=== PATIENT | female | born 1955 | race African-American/Black ===

== ENCOUNTER 2016-06-23 12:30 | Observation (INO) | payer OTHER ==
[~2016-06-23] VITALS: Ht 162.6 cm; Wt 82.4 kg
[~2016-06-23 12:30] MED LIST: ADLT ASA LOW81 MG PO; AMLOD/BENAZP1 CA5 PO; AMLODIPINE BESY10 MG PO; AMLODIPINE5 MG PO; ASPIRIN CHEWABL81 MG OR; ATENOLOL100 MG OR; CARVEDILOL25 MG PO; CILOSTAZOL50 MG PO; CIPRO XR500 MG PO; CIPROFLOXACN500 MG PO; CLONIDINE0.1 MG PO; COLACE100 MG PO; COZAAR100 MG PO; COZAAR50 MG OR; CYCLOBENZAPR10 MG PO; DIFLUCAN150 MG PO; FLAGYL ER750 MG PO; FLEXERIL OR; FLUCONAZOLE150 MG PO; FUROSEMIDE20 MG PO; FUROSEMIDE40 MG PO; GABAPENTIN300 MG PO; GLIPIZIDE5 MG PO; HYDROCODONE/ACE1 TAB PO; HYDROXYCHLOR200 M2 PO; IMDUR60 MG PO; ISOSORB DIN30 MG PO; K-DUR/KLOR-CON10 ME1 PO; K-DUR/KLOR-CON10 MEQ PO; KEFLEX500 MG PO; LIPITOR40 MG PO; LIPITOR80 MG PO; LISINOPRIL20 M1 PO; LISINOPRIL20 MG PO; LISINOPRIL40 MG PO; LORTAB 5/3255 MG PO; LORTAB5 PO; MECLIZINE25 MG PO; MELOXICAM15 MG PO; MELOXICAM7.5 MG PO; METFORMIN500 M1 PO; METFORMIN500 MG PO; METRONIDAZOL500 MG PO; NIFEDIPINE60 M1 PO; NITROGLYCER0.4 M1 SL; NITROSTAT0.4 MG SL; NORCO1 TA1 PO; NORCO1 TA2 PO; NORVASC10 M1 PO; PANTOPRAZOLE SO40 MG PO; PLAVIX75 MG PO; POT CHLORIDE10 ME1 PO; PROAIR HFA IN; PROTONIX40 M2 PO; PROTONIX40 MG PO; PROVENTIL HFA INH; PROVENTIL0.083 % IN; SIMVASTATIN40 MG PO; SIMVASTATIN80 MG PO; TENORMIN OR; TENORMIN PO; TRAMADOL HCL50 MG PO; TRANSDERM-N0.2 MG/HR TD; ZESTRIL40 MG PO; ZITHROMAX250 MG PO; [UNRECOGNIZED DRUG - OTHER]
--- NOTE | 2016-06-23 12:48 | NUR ---
PT TRIAGED, TO ROOM 14 VIA WC
[2016-06-23 13:12] LABS: HEMATOCRIT 36.7 % (37.0-47.0); HEMOGLOBIN 12.3 g/dl (12.0-16.0); IMMATURE GRANULOCYTES 0.3 % (0.0-1.0); MEAN CELL VOLUME 85.3 fL CALC (80.0-100.0); MEAN CORPUSCULAR HGB 28.6 pG CALC (26.0-32.0); MEAN CORPUSCULAR HGB CONC 33.5 g/L CALC (32.0-36.0); NEUT# 3.57 thou/uL (2.00-7.15); RED BLOOD COUNT 4.3 mill/uL (4.20-5.60); RED CELL DISTRI WIDTH 14.1 % (11.5-15.5)
[2016-06-23 13:19] LABS: ALBUMIN 4.4 g/dL (3.2-5.0); ALKALINE PHOSPHATASE 93 u/l (38-126); ANION GAP 16 (6-22 (CALC)); BILIRUBIN, TOTAL 0.7 mg/dL (0.0-1.4); BUN 14 mg/dL (7-17); BUN/CREATININE RATIO 16 (12-20 (CALC)); CALCIUM 9.6 mg/dL (8.4-10.2); CARBON DIOXIDE 24 mmol/l (22-30); CHLORIDE 109 mmol/l (95-108); CREATININE 0.9 mg/dL (0.5-1.0); GFR > 60 ML/MIN (>=60 (CALC)); GFR FOR AFR.AMER. > 60 ML/MIN (>=60 (CALC)); GLUCOSE 116 mg/dL (65-105); SGOT/AST 41 u/l (14-36); SGPT/ALT 45 u/l (9-52); SODIUM 145 mmol/l (137-146); TOTAL PROTEIN 8.5 g/dL (6.3-8.2)
[2016-06-23 13:30] LABS: MYOGLOBIN 37 ng/mL (0 - 62)
--- NOTE | 2016-06-23 13:40 | NUR ---
PATIENT RESTING DENIES ANY CHEST PAIN AT THIS TIME PATIENT AMBULATED TO THE RESTROOM WITHOUT ASSISTANCE AWAITING LAB AND RADIOLOGY RE SULTS
--- NOTE | 2016-06-23 14:40 | NUR ---
PATIENT RESTING AWAITING LAB AND RADIOLOGY RESULTS PATIENT DENIES ANY CHEST PAIN AT THIS TIME
--- NOTE | 2016-06-23 15:40 | NUR ---
PATIENT RESTING REPORT CALLED TO MED [facility] AND PATIENT IS AWAITING TRANSPORT. PATIENT DENIES ANY CHEST PAIN AT THIS TIME
--- NOTE | 2016-06-23 16:02 | NUR ---
PATIENT RESTING AWAITING TRANSPORT TO THE FLOOR. PATIENT DENIES ANY CHEST PAIN AT THIS TIME
[2016-06-23 16:27] VITALS: BP 151/85
--- NOTE | 2016-06-23 16:40 | NUR ---
PATIENT ARRIVED TO FLOOR AT THIS TIME VIA WHEEL CHAIR, ACCOMPANIED BY MARISOL RN, PATIENT AMBULATED FROM CHAIR TO BED WITH STEADY GAIT, PATIENT ORIENTED TO ROOM AND CALL LIGHT SYSTEM, ASSESSMENT COMPLETED, #[address] SITE APPEARS HEALTHY AT THIS TIME, TELE IN PLACE, PT COMPLAINS OF PAIN RATING 10/10 IN LOWER EXTREMETIES, BLOOD SUGAR CHECKED AT THIS TIME 123, PT DENIES ANY OTHER NEEDS AT THIS TIME, PT WAS REQUESTED TO CALL NURSE IF NEEDED.
[2016-06-23 19:46] VITALS: BP 143/88
--- NOTE | 2016-06-23 19:49 | NUR ---
PATIENT RESTING IN BED AT THIS TIME WITH VISITOR AT BEDSIDE. PATIENT IS AWAKE ALERT AND ORIENTEDX3. PATIENT IS EXTREMELY ANXIOUS. PATIENT DENIES ANY CHEST PAIN AT THIS TIME. PATIENT WITH TELE MONITOR IN PLACE. PATIENT WITH HEP LOCK TO LEFT AC-SITE REDRESSED AND FLUSHED WITH GOOD BLOOD RETURN. PATIENT UP TO THE BR TO VOID. LUNGS CLEAR. ABD SOFT WITH ACTIVE BS+. SAFETY PRECAUTIONS REINFORCED. CALL LIGHT IN REACH. WILL CONT TO MONITOR.
--- NOTE | 2016-06-23 23:45 | NUR ---
PATIENT TROP DRAWN. PATIENT UP TO THE BR TO VOID CLEAR YELLOW URINE. BACK TO BED. PATIENT MEDICATED FOR SLEEP AND PAIN. CALL LIGHT IN REACH. WILL CONT TO MONITOR.
[2016-06-23 23:52] VITALS: BP 137/83
--- NOTE | 2016-06-24 01:31 | NUR ---
APPEARS SLEEPING AT THIS TIME IN NO ACUTE DISTRESS-EYES CLOSED AND POSITIONED ON HER SIDE. CALL LIGHT IN REACH. WILL CONT TO MONITOR.
[2016-06-24 04:47] VITALS: BP 149/82
--- NOTE | 2016-06-24 04:56 | NUR ---
PATIENT RESTING IN BED-DENIES PAIN AT THIS TIME BUT STATES THAT SHE JUST DOESN'T FEEL GOOD. VS TAKEN AND RECORDED. CALL LIGHT IN REACH. WILL CONT TO MONITOR.
[2016-06-24 06:24] LABS: ANION GAP 14 (6-22 (CALC)); BUN 16 mg/dL (7-17); BUN/CREATININE RATIO 21 (12-20 (CALC)); CALCIUM 9.4 mg/dL (8.4-10.2); CARBON DIOXIDE 25 mmol/l (22-30); CHLORIDE 107 mmol/l (95-108); CREATININE 0.8 mg/dL (0.5-1.0); GFR > 60 ML/MIN (>=60 (CALC)); GFR FOR AFR.AMER. > 60 ML/MIN (>=60 (CALC)); GLUCOSE 86 mg/dL (65-105); MAGNESIUM 1.9 mg/dL (1.6-2.3); POTASSIUM 3.8 mmol/l (3.5-5.1); SODIUM 142 mmol/l (137-146)
--- NOTE | 2016-06-24 07:14 | NUR ---
REPORT RECEIVED FROM ANA ROSA LIANG. PT STATES "I FEEL BETTER". PLAN OF CARE DISCUSSED. REPORTING OF CONCERNS ENCOURAGED. CALL LIGHT REVIEWED AND IN REACH.
[2016-06-24 07:30] VITALS: BP 163/80
--- NOTE | 2016-06-24 09:00 | NUR ---
REPORT RECEIVED FROM Lyudmila MORA RN; PT IN SUPINE POSITION; DENIES PAIN; TELE MONITOR IN PLACE; CALL MERCHANT WITHIN REACH; WILL CONTINUE TO MONITOR.
[2016-06-24 11:06] VITALS: BP 172/97
--- NOTE | 2016-06-24 12:30 | NUR ---
DR. GARCIA IN TO SEE PT; PLAN OF CARE DISCUSSED
[2016-06-24] MEDS ORDERED: LIPITOR20 M1 PO (13:30)
[2016-06-24 14:00] VITALS: BP 134/72
== END 2016-06-24 15:00 | disposition home or self-care (01) | DRG 313 ==
LOC: ENPENDDIS → ED 12:30 → ED-I 13:33 → ED 14:32 → MS2 14:33
PROVIDERS: Emergency Medicine; ADMIT Internal Medicine; ATTEND Internal Medicine
DX: R07.2 Precordial pain (principal); I25.2 Old myocardial infarction; I10 Essential (primary) hypertension; I25.10 Atherosclerotic heart disease of native coronary artery without angina pectoris; E11.9 Type 2 diabetes mellitus without complications; J44.9 Chronic obstructive pulmonary disease, unspecified; E78.5 Hyperlipidemia, unspecified; Z79.02 Long term (current) use of antithrombotics/antiplatelets; Z79.84 Long term (current) use of oral hypoglycemic drugs; Z79.82 Long term (current) use of aspirin; Z95.5 Presence of coronary angioplasty implant and graft; Z87.891 Personal history of nicotine dependence
CPT/HCPCS: G0378

== ENCOUNTER 2016-08-24 20:30 | Observation (INO) | payer OTHER ==
[~2016-08-24] VITALS: Ht 162.6 cm; Wt 83.0 kg
[~2016-08-24 20:30] MED LIST changes: +LIPITOR20 M1 PO
[2016-08-24] MEDS ORDERED: BACLOFEN10 MG PO (20:57)
[2016-08-24] MEDS ORDERED: AMLODIPINE BESYL5 MG PO (21:09)
[2016-08-24] MEDS ORDERED: ISOSORB MONO30 MG PO (21:10)
[2016-08-24] MEDS ORDERED: LOSARTAN POT50 MG PO (21:11)
[2016-08-24] MEDS ORDERED: LASIX 40 MG TAB40 MG PO (21:12)
[2016-08-24] MEDS ORDERED: RANITIDINE150 M1 PO (21:14)
[2016-08-24 21:29] LABS: URINE BILIRUBIN - DIPSTICK NEGATIVE (NEGATIVE); URINE BLOOD DIPSTICK NEGATIVE (NEGATIVE); URINE COLOR YELLOW; URINE GLUCOSE - DIPSTICK NEGATIVE (NEGATIVE); URINE KETONE NEGATIVE (NEGATIVE); URINE LEUK ESTERASE NEGATIVE (NEGATIVE); URINE NITRITE - DIPSTICK NEGATIVE (Negative); URINE PROTEIN - DIPSTICK 30 mg/dL (NEG-TRACE); URINE SPECIFIC GRAVITY 1.015; URINE UROBILINOGEN - DIPSTICK 0.2 E.U./dL (0.2)
[2016-08-24 21:31] LABS: HEMATOCRIT 37.1 % (37.0-47.0); HEMOGLOBIN 12.4 g/dl (12.0-16.0); IMMATURE GRANULOCYTES 1.2 % (0.0-1.0); MEAN CELL VOLUME 86.5 fL CALC (80.0-100.0); MEAN CORPUSCULAR HGB 28.9 pG CALC (26.0-32.0); MEAN CORPUSCULAR HGB CONC 33.4 g/L CALC (32.0-36.0); NEUT# 4.77 thou/uL (2.00-7.15); RED BLOOD COUNT 4.29 mill/uL (4.20-5.60); RED CELL DISTRI WIDTH 14.3 % (11.5-15.5)
[2016-08-24 21:32] LABS: URINE CLARITY SLIGHT CLOUDY
[2016-08-24 21:42] LABS: URINE BACTERIA FEW hpf; URINE RBC 0-2 RBC/hpf (0-5); URINE SQUAMOUS EPITHELIAL CELL MODERATE EPI/hpf (0-FEW); URINE WBC 0-2 WBC/hpf (0-5)
[2016-08-24 21:46] LABS: ACT PARTIAL THROMBO TIME 22.3 SECONDS (20.0-32.5); PROTHROMBIN TIME 10.5 SECONDS (9.0-12.5)
[2016-08-24 22:14] LABS: ALBUMIN 4.5 g/dL (3.2-5.0); ALKALINE PHOSPHATASE 96 u/l (38-126); ANION GAP 15 (6-22 (CALC)); BILIRUBIN, TOTAL 0.4 mg/dL (0.0-1.4); BUN 18 mg/dL (7-17); BUN/CREATININE RATIO 15 (12-20 (CALC)); CALCIUM 9.6 mg/dL (8.4-10.2); CARBON DIOXIDE 26 mmol/l (22-30); CHLORIDE 106 mmol/l (95-108); CREATININE 1.2 mg/dL (0.5-1.0); GFR 46 ML/MIN (>=60 (CALC)); GFR FOR AFR.AMER. 56 ML/MIN (>=60 (CALC)); GLUCOSE 110 mg/dL (65-105); POTASSIUM 3.4 mmol/l (3.5-5.1); SGOT/AST 25 u/l (14-36); SGPT/ALT 50 u/l (9-52); SODIUM 144 mmol/l (137-146); TOTAL PROTEIN 7.7 g/dL (6.3-8.2)
[2016-08-24 22:27] LABS: MYOGLOBIN 37 ng/mL (0 - 62)
[2016-08-25 01:21] VITALS: BP 153/87
[2016-08-25 04:28] VITALS: BP 122/76
[2016-08-25 06:45] LABS: ANION GAP 15 (6-22 (CALC)); BUN 17 mg/dL (7-17); BUN/CREATININE RATIO 22 (12-20 (CALC)); CALCIUM 9.5 mg/dL (8.4-10.2); CALCULATED LDLCHOLESTEROL 112 mg/dL (62-129 (CALC)); CARBON DIOXIDE 24 mmol/l (22-30); CHLORIDE 107 mmol/l (95-108); CHOLESTEROL HDL RATIO 5.3 (<4.4 (CALC)); CREATININE 0.8 mg/dL (0.5-1.0); GFR > 60 ML/MIN (>=60 (CALC)); GFR FOR AFR.AMER. > 60 ML/MIN (>=60 (CALC)); GLUCOSE 135 mg/dL (65-105); HDL CHOLESTEROL 33 mg/dL (>=40); POTASSIUM 3.5 mmol/l (3.5-5.1); SODIUM 142 mmol/l (137-146); TOTAL CHOLESTEROL 175 mg/dl (0-199); TOTAL TRIGLYCERIDES 150 mg/dl (30-149); VLDL CHOLESTROL 30 mg/dl (2-49 (CALC))
[2016-08-25 08:02] VITALS: BP 152/86
[2016-08-25 11:35] VITALS: BP 130/74
== END 2016-08-25 14:04 | disposition home or self-care (01) | DRG 313 ==
LOC: ENPENDDIS → ED 20:30 → ED-I 08-25 00:26 → ED 08-25 00:33 → MS2 08-25 00:34
PROVIDERS: Emergency Medicine; ADMIT Internal Medicine; ATTEND Internal Medicine
DX: R07.89 Other chest pain (principal); I25.2 Old myocardial infarction; N17.9 Acute kidney failure, unspecified; I25.10 Atherosclerotic heart disease of native coronary artery without angina pectoris; E11.9 Type 2 diabetes mellitus without complications; E86.0 Dehydration; I10 Essential (primary) hypertension; E78.5 Hyperlipidemia, unspecified; J44.9 Chronic obstructive pulmonary disease, unspecified; Z79.84 Long term (current) use of oral hypoglycemic drugs; Z95.5 Presence of coronary angioplasty implant and graft; Z87.891 Personal history of nicotine dependence
CPT/HCPCS: G0378

== ENCOUNTER 2016-12-03 05:20 | Observation (INO) | payer OTHER ==
[~2016-12-03] VITALS: Ht 162.6 cm; Wt 80.8 kg
[~2016-12-03 05:20] MED LIST changes: +AMLODIPINE BESYL5 MG PO; +BACLOFEN10 MG PO; +ISOSORB MONO30 MG PO; +LASIX 40 MG TAB40 MG PO; +LOSARTAN POT50 MG PO; +RANITIDINE150 M1 PO
--- NOTE | 2016-12-03 05:33 | NUR ---
DR GENAO AT BEDSIDE.
[2016-12-03] MEDS ORDERED: PROVENTIL HFA IN (05:40)
[2016-12-03] MEDS ORDERED: COLACE100 MG PO (05:41)
--- NOTE | 2016-12-03 05:46 | NUR ---
LAST NORMAL FOR PT WAS [id number]/02/[id number]
--- NOTE | 2016-12-03 06:03 | NUR ---
PORT XRAY AT BEDSIDE.
--- NOTE | 2016-12-03 06:06 | NUR ---
SPOUSE AT BEDSIDE.
[2016-12-03 06:10] LABS: HEMATOCRIT 36.8 % (37.0-47.0); HEMOGLOBIN 12.2 g/dl (12.0-16.0); IMMATURE GRANULOCYTES 0.6 % (0.0-1.0); MEAN CELL VOLUME 86.4 fL CALC (80.0-100.0); MEAN CORPUSCULAR HGB 28.6 pG CALC (26.0-32.0); MEAN CORPUSCULAR HGB CONC 33.2 g/L CALC (32.0-36.0); NEUT# 2.45 thou/uL (2.00-7.15); RED BLOOD COUNT 4.26 mill/uL (4.20-5.60); RED CELL DISTRI WIDTH 13.8 % (11.5-15.5)
[2016-12-03 06:17] LABS: ALBUMIN 4.3 g/dL (3.2-5.0); ALKALINE PHOSPHATASE 100 u/l (38-126); ANION GAP 17 (6-22 (CALC)); BILIRUBIN, TOTAL 0.5 mg/dL (0.0-1.4); BUN 14 mg/dL (7-17); BUN/CREATININE RATIO 19 (12-20 (CALC)); CALCIUM 9.7 mg/dL (8.4-10.2); CARBON DIOXIDE 23 mmol/l (22-30); CHLORIDE 109 mmol/l (95-108); CREATININE 0.7 mg/dL (0.5-1.0); GFR > 60 ML/MIN (>=60 (CALC)); GFR FOR AFR.AMER. > 60 ML/MIN (>=60 (CALC)); GLUCOSE 212 mg/dL (65-105); POTASSIUM 3.8 mmol/l (3.5-5.1); SGOT/AST 19 u/l (14-36); SGPT/ALT 33 u/l (9-52); SODIUM 145 mmol/l (137-146); TOTAL PROTEIN 7.2 g/dL (6.3-8.2)
[2016-12-03 06:30] LABS: MYOGLOBIN 21 ng/mL (0 - 62)
[2016-12-03 06:31] LABS: ACT PARTIAL THROMBO TIME 24.1 SECONDS (20.0-32.5); PROTHROMBIN TIME 10.6 SECONDS (9.0-12.5)
--- NOTE | 2016-12-03 06:41 | NUR ---
PT UP TO BEDSIDE COMMODE. C/O FEELINIG "BAD" WHENEVER SHE MOVES.
--- NOTE | 2016-12-03 06:42 | NUR ---
INFORMED PT OF NEED TO TRANSPORT TO [facility] FOR CT BRAIN.
[2016-12-03 06:51] LABS: URINE BILIRUBIN - DIPSTICK NEGATIVE (NEGATIVE); URINE BLOOD DIPSTICK NEGATIVE (NEGATIVE); URINE CLARITY CLEAR; URINE COLOR YELLOW; URINE GLUCOSE - DIPSTICK NEGATIVE (NEGATIVE); URINE KETONE NEGATIVE (NEGATIVE); URINE LEUK ESTERASE NEGATIVE (NEGATIVE); URINE NITRITE - DIPSTICK NEGATIVE (Negative); URINE PROTEIN - DIPSTICK 100 mg/dL (NEG-TRACE); URINE UROBILINOGEN - DIPSTICK 0.2 E.U./dL (0.2)
[2016-12-03 06:56] LABS: BARBITURATES NEGATIVE (NEGATIVE); COCAINE NEGATIVE (NEGATIVE); METHADONE NEGATIVE (NEGATIVE); OXCYCODONE NEGATIVE (NEGATIVE); TETRAHYDROCANNABIONOL NEGATIVE (NEGATIVE); TRICYLIC ANTIDEPRESSANTS NEGATIVE (NEGATIVE)
--- NOTE | 2016-12-03 06:56 | NUR ---
REPORT TO EDYTA POLLACK.
--- NOTE | 2016-12-03 07:05 | NUR ---
INTRODUCED SELF TO PT AND . PATIENT DENIES ANY NUASEA BUT REPOPRTS CONTINUED DIZZINESS. PATIENT AWARE OF ETA OF [facility] AND NEED FOR CT BRAIN. PATIENT DENIES ANY NEEDS AT THIS TIME. CALL MAYUR HERMOSILLO.
[2016-12-03 07:08] LABS: URINE RBC 0-2 RBC/hpf (0-5); URINE SQUAMOUS EPITHELIAL CELL RARE EPI/hpf (0-FEW); URINE WBC 0-2 WBC/hpf (0-5)
--- NOTE | 2016-12-03 07:12 | NUR ---
[facility] AT BEDSIDE, REPORT GIVEN.
--- NOTE | 2016-12-03 09:40 | NUR ---
REPORT GIVEN TO ANA ROSA LINAD
--- NOTE | 2016-12-03 10:11 | NUR ---
SBAR PRINTED TO FLOOR
--- NOTE | 2016-12-03 11:18 | NUR ---
REPORT CALLED TO LATHA, TO FLOOR SOON.
--- NOTE | 2016-12-03 11:20 | NUR ---
Admission Note Report Given to: SBAR PRINTED TO FLOOR Transported by: Wheelchair X Stretcher Transported with: X Nurse Transporter X Patent IV O2 X Data Analytics Developer
--- NOTE | 2016-12-03 11:25 | NUR ---
FROM ER VIA STRETCHER ACCOMPANIED BY ALEXEI OSEGUERA. TRANSFERRED TO BED WITH UNSTEADY GAIT. RESPS EVEN AND UNLABORED ON ROOM AIR, TELE MONITOR IN PLACE. REPORTS DIZZINESS WITH MOVEMENT. ORIENTED TO ROOM AND CALL SYSTEM. SAFETY PRECAUTIONS REINFORCED. BED IN LOWEST POSITION WITH WHEELS LOCKED. CALL LIGHT WITHIN REACH. ENCOURAGED PT TO CALL FOR ANY NEEDS.
[2016-12-03 11:33] VITALS: BP 170/89
[2016-12-03 11:41] LABS: CHOLESTEROL HDL RATIO 5.8 (<4.4 (CALC)); MAGNESIUM 1.8 mg/dL (1.6-2.3)
--- NOTE | 2016-12-03 13:30 | NUR ---
PHYSICAL THERAPY IN WITH PT.
[2016-12-03] MEDS ORDERED: ISOSORB MONO60 M1 PO (13:38)
[2016-12-03] MEDS ORDERED: LIPITOR40 M1 PO (13:39)
[2016-12-03] MEDS ORDERED: LORCET HD 10-321 TAB PO (13:40)
--- NOTE | 2016-12-03 14:45 | NUR ---
MEDICATED WITH MECLIZINE PO FOR C/O DIZZINESS. PT ENCOURAGED TO STAY ON BACK AT 45 DEGREE ANGLE, KEEP TOWEL AROUND NECK, HAVE FAMILY SIT ON RIGHT SIDE OF BED, DO NOT LIE FLAT, TRY TO MOVE BODY INSTEAD OF HEAD, UNTIL AT LEAST 2200.
[2016-12-03 16:00] VITALS: BP 135/82
--- NOTE | 2016-12-03 18:50 | NUR ---
RECEIVED CHANGE OF SHIFT REPORT FROM ANA ROSA AZUL. PATIENT LYING IN BED AND APPEARS TO BE ASLEEP. RESPIRATION EVEN AND UNLABORED. NO APPARENT ACUTE DISTRESS NOTED. WILL CONTINUE TO MONITOR.
[2016-12-03 20:00] VITALS: BP 143/84
[2016-12-04] VITALS (7 sets, daily range): BP systolic 115–158; BP diastolic 60–88
--- NOTE | 2016-12-04 04:00 | NUR ---
NO APPARENT ACUTE CHANGES NOTED IN PATIENT'S CONDITION.
[2016-12-04 05:41] LABS: ANION GAP 15 (6-22 (CALC)); BUN 12 mg/dL (7-17); BUN/CREATININE RATIO 16 (12-20 (CALC)); CALCIUM 9.3 mg/dL (8.4-10.2); CARBON DIOXIDE 28 mmol/l (22-30); CHLORIDE 109 mmol/l (95-108); CREATININE 0.8 mg/dL (0.5-1.0); GFR > 60 ML/MIN (>=60 (CALC)); GFR FOR AFR.AMER. > 60 ML/MIN (>=60 (CALC)); GLUCOSE 151 mg/dL (65-105); SODIUM 147 mmol/l (137-146)
[2016-12-04 05:54] LABS: HEMATOCRIT 35.8 % (37.0-47.0); HEMOGLOBIN 11.7 g/dl (12.0-16.0); IMMATURE GRANULOCYTES 0.2 % (0.0-1.0); MEAN CELL VOLUME 87.3 fL CALC (80.0-100.0); MEAN CORPUSCULAR HGB 28.5 pG CALC (26.0-32.0); MEAN CORPUSCULAR HGB CONC 32.7 g/L CALC (32.0-36.0); NEUT# 2.84 thou/uL (2.00-7.15); RED BLOOD COUNT 4.1 mill/uL (4.20-5.60); RED CELL DISTRI WIDTH 13.8 % (11.5-15.5)
--- NOTE | 2016-12-04 07:40 | NUR ---
REPORT RECEIVED FROM NIGHT NURSE, PT.IS IN BED ASLEEP WITH LIGHTS OUT. V/S HAVE BEEN ASSESSED AND BS CHECKED @155. MEDICATED PT.WITH GLUCOPHAGE ORDERED AND PT.STARTING TO EAT BREAKFAST AT THIS TIME. CALL LIGHT W/IN REACH, DENIES ANY OTHER NEEDS AT THIS TIME.
--- NOTE | 2016-12-04 09:59 | NUR ---
PT.AMBULATED TO RESTROOM W/1X ASSIST. PT.REPORTS DIZZINESS AND WEAKNESS SOMEWHAT IMPROVED, BUT NO GONE. PT.CLEANING UP WHILE IN RESTROOM. PT.MEDICATED WITH AM MEDICATIONS ORDERED. CALL LIGHT W/IN REACH AND INSTRUCTED TO CALL BEFORE GETTING UP OR IF ANY NEEDS FOR ASSISTANCE ARISE.
--- NOTE | 2016-12-04 13:29 | NUR ---
PATIENT REPORTS FEELING FINE UNTIL SHE ROLLED TO HER LEFT AFTER 10 PM. SHE THEN WAS DIZZY ONLY FOR A FEW SECONDS. SHE FEELS THAT SHE IS BETTER WITH THE MEDICATION WELL. NO MANEUVERS PERFORMED NO DIZZINESS AT PRESENT. OOB SUPINE TO SIT INDEP AND TO STAND WITH BILAT UE PUSH OFF AND CLOSE SBA. AMB 40 FEET WITH POLICY OFFICER AND PUSHIG IV POLE WITHOUT ANY ATAXIC MOVEMENT. SHE WAS HESITANT TO KEEP A FOOT OFF OF FLOOR WITH DECREASED STEP LENGHT AND HEIGHT, BUT NO LOB. RECOMMENDED TRYING A WALKER BUT PATIENT REFUSED. SIGNIFICANT IMPROVEMENT FROM YESTERDAY. WILL F/U AGAIN TOMORROW. WILL ONLY PERFORM MANEUVERS IF DIZZY, AND WILL CONT BALANCE AND GT.
--- NOTE | 2016-12-04 15:57 | NUR ---
PT.MEDICATED FOR PAIN 5/10 IN R.SHOULDER AND HEADACHE.
--- NOTE | 2016-12-04 19:51 | NUR ---
BEDSIDE REPORT RECEIVED FROM ANA ROSA EUGENE. PT RESTING IN BED; INDEPENENT TO BATHROOM. DENIES PAIN CURRENTLY. RESPIRATIONS EVEN AND UNLABORED. PLAN OF CARE DISCSSED. PT ENCOURAGED TO VERBALIZE CONCERNS. STATES UNDERSTANDING. SAFETY MEASURES IN PLACE. CALL LIGHT WITHIN REACH.
--- NOTE | 2016-12-04 22:45 | NUR ---
PT CONTINUES TO DENY ANY DIZZINESS OR VERTIGO. ONLY COMPLAINT IS RIGHT SHOULDER ACHE; MEDICATED WITH GOOD EFFECT. NEURO EXAMS HAVE BEEN WNL FOR PT. PT ENCOURAGED TO CALL FOR ASSISTANCE TO BATHROOM IF FEELING WEAK OR DIZZY. STATES UNDERSTANDING.
--- NOTE | 2016-12-05 00:19 | NUR ---
PT ASLEEP AT THIS TIME. NO APPARENT ACUTE CHANGES IN CONDITION. RESPIRATIONS EVEN AND UNLABORED ON ROOM AIR. SAFETY MEASURES IN PLACE. CALL LIGHT WITHIN REACH.
[2016-12-05 00:43] VITALS: BP 143/82
--- NOTE | 2016-12-05 04:23 | NUR ---
PT ASLEEP AT THIS TIME. NO SIGNS OF DISTRESS NOTED. RESPIRATIONS EVEN AND UNLABORED. UP NEEDED TO USE THE BATHROOM. NO REQUESTS OR COMPLAINTS OFFERED. SAFETY MEASURES IN PLACE. CALL LIGHT WITHIN REACH.
[2016-12-05 05:02] VITALS: BP 140/79
[2016-12-05 06:53] LABS: HEMATOCRIT 37.1 % (37.0-47.0); HEMOGLOBIN 12.1 g/dl (12.0-16.0); IMMATURE GRANULOCYTES 0.6 % (0.0-1.0); MEAN CELL VOLUME 87.3 fL CALC (80.0-100.0); MEAN CORPUSCULAR HGB 28.5 pG CALC (26.0-32.0); MEAN CORPUSCULAR HGB CONC 32.6 g/L CALC (32.0-36.0); NEUT# 2.61 thou/uL (2.00-7.15); RED BLOOD COUNT 4.25 mill/uL (4.20-5.60); RED CELL DISTRI WIDTH 13.8 % (11.5-15.5)
[2016-12-05 07:00] LABS: ANION GAP 13 (6-22 (CALC)); BUN 17 mg/dL (7-17); BUN/CREATININE RATIO 21 (12-20 (CALC)); CALCIUM 9.9 mg/dL (8.4-10.2); CARBON DIOXIDE 28 mmol/l (22-30); CHLORIDE 106 mmol/l (95-108); CREATININE 0.8 mg/dL (0.5-1.0); GFR > 60 ML/MIN (>=60 (CALC)); GFR FOR AFR.AMER. > 60 ML/MIN (>=60 (CALC)); GLUCOSE 119 mg/dL (65-105); MAGNESIUM 1.8 mg/dL (1.6-2.3); POTASSIUM 3.8 mmol/l (3.5-5.1); SODIUM 144 mmol/l (137-146)
[2016-12-05 08:15] VITALS: BP 167/88
--- NOTE | 2016-12-05 08:15 | NUR ---
ASSESSMENT IS COMPLETED: IV SITE IS FREE FROM REDNESS OR EDEMA. TELE MONITOR IN PLACE. PT IS FEELING BETTER THIS AM. NO MORE DIZZINESS AND IS ABLE TO AMBULATE TO THE BATHROOM. CONTINUE TO OBSERVE AND MONITOR.
[2016-12-05 11:00] VITALS: BP 149/78
[2016-12-05] MEDS ORDERED: ANTIVERT PO (11:25)
[2016-12-05] MEDS ORDERED: FLONASE AL50 MCG/AC1 NAB (11:29)
--- NOTE | 2016-12-05 12:25 | NUR ---
PT READY FOR DISCHARGE WAS GIVEN PAPERS AND VERBALIZED UNDERSTANDING, IV SITE WAS DISCONTINEUD CATHETER INTACT. CONTINUE TO OBSERVE AND MONITOR. Discharge instructions given. Patient verbalizes understanding of same. Discharged in stable condition via Ambulatory to Home with family. All belongings sent with pt.
== END 2016-12-05 12:19 | disposition home or self-care (01) | DRG 149 ==
LOC: ED 05:20 → ED-I 09:54 → ED 10:08 → MS2 10:09
PROVIDERS: Emergency Medicine; Nurse Practitioner Family; ADMIT Internal Medicine; ATTEND Internal Medicine
DX: H81.12 Benign paroxysmal vertigo, left ear (principal); I10 Essential (primary) hypertension; E11.9 Type 2 diabetes mellitus without complications; J44.9 Chronic obstructive pulmonary disease, unspecified; J32.8 Other chronic sinusitis; I25.2 Old myocardial infarction; I25.10 Atherosclerotic heart disease of native coronary artery without angina pectoris; E78.5 Hyperlipidemia, unspecified; M19.90 Unspecified osteoarthritis, unspecified site; F41.9 Anxiety disorder, unspecified; Z86.73 Personal history of transient ischemic attack (TIA), and cerebral infarction without residual deficits; Z87.891 Personal history of nicotine dependence; Z95.5 Presence of coronary angioplasty implant and graft; Z79.84 Long term (current) use of oral hypoglycemic drugs
CPT/HCPCS: G0378; J1650

== ENCOUNTER 2016-12-26 12:00 | Observation (INO) | payer OTHER ==
[~2016-12-26] VITALS: Ht 162.6 cm; Wt 83.6 kg
[~2016-12-26 12:00] MED LIST changes: -AMLODIPINE BESYL5 MG PO; +ANTIVERT PO; -BACLOFEN10 MG PO; +BACLOFEN20 MG PO; +FLONASE AL50 MCG/AC1 NAB; +ISOSORB MONO60 M1 PO; +LIPITOR40 M1 PO; +LORCET HD 10-321 TAB PO; +PROVENTIL HFA IN; +RANITIDINE HCL300 MG PO; -RANITIDINE150 M1 PO
[2016-12-26 12:27] LABS: HEMATOCRIT 36.5 % (37.0-47.0); HEMOGLOBIN 12.1 g/dl (12.0-16.0); IMMATURE GRANULOCYTES 0.4 % (0.0-1.0); MEAN CELL VOLUME 86.5 fL CALC (80.0-100.0); MEAN CORPUSCULAR HGB 28.7 pG CALC (26.0-32.0); MEAN CORPUSCULAR HGB CONC 33.2 g/L CALC (32.0-36.0); NEUT# 3.95 thou/uL (2.00-7.15); RED BLOOD COUNT 4.22 mill/uL (4.20-5.60); RED CELL DISTRI WIDTH 13.7 % (11.5-15.5)
[2016-12-26 12:36] LABS: PROTHROMBIN TIME 11.2 SECONDS (9.0-12.5)
--- NOTE | 2016-12-26 12:40 | NUR ---
PT TO ROOM VIA WC ACCOMPANIED BY STAFF AND FAMILY; PT AMBULATORY TO BED WITH STAND BY ASSIST; PT ORIENTED TO ROOM AND CALL SYSTEM; X2 UNSUCCESSFUL ATTEMPT AT IV ACCESS BY THIS NURSE; FAMILY IN ROOM; CALL MERCHANT WITHIN REACH; WILL CONTINUE TO MONITOR.
[2016-12-26 12:46] LABS: ALBUMIN 4.4 g/dL (3.2-5.0); ALKALINE PHOSPHATASE 81 u/l (38-126); ANION GAP 16 (6-22 (CALC)); BILIRUBIN, TOTAL 0.8 mg/dL (0.0-1.4); BUN 15 mg/dL (7-17); BUN/CREATININE RATIO 18 (12-20 (CALC)); CALCIUM 9.9 mg/dL (8.4-10.2); CARBON DIOXIDE 25 mmol/l (22-30); CHLORIDE 108 mmol/l (95-108); CREATININE 0.8 mg/dL (0.5-1.0); GFR > 60 ML/MIN (>=60 (CALC)); GFR FOR AFR.AMER. > 60 ML/MIN (>=60 (CALC)); GLUCOSE 139 mg/dL (65-105); POTASSIUM 3.9 mmol/l (3.5-5.1); SGOT/AST 21 u/l (14-36); SGPT/ALT 39 u/l (9-52); SODIUM 144 mmol/l (137-146); TOTAL PROTEIN 7.5 g/dL (6.3-8.2)
[2016-12-26 13:10] VITALS: BP 152/91
--- NOTE | 2016-12-26 14:06 | NUR ---
PT TO RADIOLOGY VIA STRETCHER ACCOMPANIED BY STAFF
--- NOTE | 2016-12-26 15:00 | NUR ---
PT RETURN FROM RADIOLOGY VIA STRETCHER ACCOMPANIED BY STAFF; TRANSFERED TO BED X2 PERSON ASSIST; PT A/O X3; PT TEARFUL; PT STATES LT FLANK PAIN 11/19, WILL NOTIFY MD; PT INSTRUCTED ON COMPLETE BED REST AND SUPINE POSITION X4 HOURS; ORIENTED TO ROOM AND CALL SYSTEM; FAMILY AT BEDSIDE; WILL CONTINUE TO MONITOR.
--- NOTE | 2016-12-26 15:23 | NUR ---
Visited pt room for daily rounding. Pt appeared and reported to be in severe pain. Stated that she has been in pain since she arrived but has yet to receive any pain medication. Pt reported that she takes hydrocodone/APAP at home for her back pain and pain currently at 11 on scale of 1-10. Pt stated that she did make nurse aware of severe pain level and that nurse went to get the medication. Pt reported that she did not have questions and not experiencing any adverse effects as she has not gotten any medications yet.
[2016-12-26 15:30] VITALS: BP 155/80
--- NOTE | 2016-12-26 15:45 | NUR ---
PT MEDICATED FOR C/O BACK PAIN 11/19; IVF STARTED AT THIS TIME; CALL MERCHANT WITHIN REACH; WILL CONTINUE TO MONITOR.
[2016-12-26] MEDS ORDERED: B121000 MCG PO (16:46)
--- NOTE | 2016-12-26 16:48 | NUR ---
Visited pt rm for med rec. Went over all of her medications and updated her med list accordingly. Pt allergic to ampicillin, Bactrim, nifedipine but pt stated she was not sure what kind of allergic reaction she had ("I don't know what happended, I just know my doctors stopped them because I was allergic to"). pt did not have any other concerns or questions.
--- NOTE | 2016-12-26 18:15 | NUR ---
PT RESTING COMFORTABLY IN BED; NO COMPLAINTS OF PAIN OR DISOCOMFORT VOICED; IVF INFUSING WITHOUT DIFFICULTY; REINFORCE TO PT BEDREST UNTIL 1900, PT VERBALIZE UNDERSTANDING OF SAME; CALL MERCHANT WITHIN REACH; WILL CONTINUE TO MONITOR.
[2016-12-26 19:10] VITALS: BP 155/94
--- NOTE | 2016-12-26 19:30 | NUR ---
PT IN [place] EATING FOOD FROM OUTSIDE HOSPITAL, PROVIDED BY FAMILY. A/O X3, C/O LEFT LOWER BACK PAIN 09/19, STATES PERCOCET AND TORADOL GIVEN EARLIER HAS NOT HELPED, IS ASKING FOR HYDROCODONE SHE TAKES AT HOME. SPOKE WITH KEVEN CLAY AND NEW ORDERS RECEIVED. PERCOCET DC'D, WILL MEDICATED WITH HYDROCODONE WHEN MED AVAILABLE, PT AWARE. PO FLUIDS IN REACH. NS INFUSING TO RH AT 80CC/HR. CALL LIGHT IN REACH.
[2016-12-26 23:40] VITALS: BP 108/64
--- NOTE | 2016-12-27 | NUR ---
RESTING ON RIGHT SIDE WITH EYES CLOSED, RESPIRATIONS EVEN AND UNLABORED.
--- NOTE | 2016-12-27 03:24 | NUR ---
C/O PAIN 10/10 TO LEFT LOWER BACK PAIN 10/10, MEDICATED WITH LORTAB AT THIS TIME. DRESSINGIN CDI. CALL LIGHT IN REACH.
[2016-12-27 05:00] VITALS: BP 115/57
[2016-12-27 06:20] LABS: HEMATOCRIT 33.4 % (37.0-47.0); HEMOGLOBIN 11.2 g/dl (12.0-16.0); IMMATURE GRANULOCYTES 0.4 % (0.0-1.0); MEAN CELL VOLUME 86.3 fL CALC (80.0-100.0); MEAN CORPUSCULAR HGB 28.9 pG CALC (26.0-32.0); MEAN CORPUSCULAR HGB CONC 33.5 g/L CALC (32.0-36.0); NEUT# 4.63 thou/uL (2.00-7.15); RED BLOOD COUNT 3.87 mill/uL (4.20-5.60); RED CELL DISTRI WIDTH 13.7 % (11.5-15.5)
[2016-12-27 06:55] LABS: ANION GAP 14 (6-22 (CALC)); BUN 14 mg/dL (7-17); BUN/CREATININE RATIO 19 (12-20 (CALC)); CALCIUM 9.1 mg/dL (8.4-10.2); CARBON DIOXIDE 26 mmol/l (22-30); CHLORIDE 106 mmol/l (95-108); CREATININE 0.8 mg/dL (0.5-1.0); GFR > 60 ML/MIN (>=60 (CALC)); GFR FOR AFR.AMER. > 60 ML/MIN (>=60 (CALC)); GLUCOSE 150 mg/dL (65-105); MAGNESIUM 1.7 mg/dL (1.6-2.3); SODIUM 142 mmol/l (137-146)
--- NOTE | 2016-12-27 07:30 | NUR ---
PT ON LEFT SIDE; IVF INFUSING WELL; CALL MERCHANT WITHIN REACH; WILL CONTINUE TO MONITOR.
[2016-12-27 07:55] VITALS: BP 121/66
--- NOTE | 2016-12-27 10:00 | NUR ---
PT VISITING WITH FAMILY; NO COMPLAINTS VOICED; CALL MERCHANT WITHIN REACH; WILL CONTINUE TO MONITOR.
--- NOTE | 2016-12-27 12:08 | NUR ---
Discharge instructions given. Patient verbalizes understanding of same. Discharged in stable condition via AMBULATORY to Home with family. All belongings sent with pt.
== END 2016-12-27 11:59 | disposition home or self-care (01) | DRG 700 ==
LOC: MS2 12:00
PROVIDERS: Nurse Practitioner Family; ADMIT Internal Medicine; ATTEND Internal Medicine
PROC: 0TB13ZX Excision of Left Kidney, Percutaneous Approach, Diagnostic (ICD-10-PCS; principal; 2016-12-26)
DX: E11.22 Type 2 diabetes mellitus with diabetic chronic kidney disease (principal); I12.9 Hypertensive chronic kidney disease with stage 1 through stage 4 chronic kidney disease, or unspecified chronic kidney disease; N18.9 Chronic kidney disease, unspecified; E11.21 Type 2 diabetes mellitus with diabetic nephropathy; J32.9 Chronic sinusitis, unspecified; E78.5 Hyperlipidemia, unspecified; F41.9 Anxiety disorder, unspecified; H81.12 Benign paroxysmal vertigo, left ear; I25.10 Atherosclerotic heart disease of native coronary artery without angina pectoris; J44.9 Chronic obstructive pulmonary disease, unspecified; M19.90 Unspecified osteoarthritis, unspecified site; G89.29 Other chronic pain; I25.2 Old myocardial infarction; Z95.5 Presence of coronary angioplasty implant and graft; Z79.84 Long term (current) use of oral hypoglycemic drugs; Z87.891 Personal history of nicotine dependence; Z79.891 Long term (current) use of opiate analgesic
CPT/HCPCS: G0378

== ENCOUNTER 2017-03-20 18:27 | Emergency (ER) | payer MEDICAID ==
[~2017-03-20] VITALS: Ht 162.6 cm; Wt 80.2 kg
[~2017-03-20 18:27] MED LIST changes: +B121000 MCG PO
[2017-03-20 18:35] VITALS: BP 120/72
== END 2017-03-20 18:48 | disposition left against medical advice (07) | DRG 951 ==
LOC: ED 18:27 → LWOBS 18:48
DX: Z91.19 Patient's noncompliance with other medical treatment and regimen (principal)

== ENCOUNTER 2017-03-22 10:49 | Emergency (ER) | payer OTHER ==
[~2017-03-22] VITALS: Ht 162.6 cm; Wt 80.8 kg
[2017-03-22 11:57] LABS: INFLUENZA A NONE DETECTED (NONE DETECT); INFLUENZA B NONE DETECTED (NONE DETECT)
[2017-03-22] MEDS ORDERED: PROAIR HFA108 MCG/AC PO (12:09)
[2017-03-22] MEDS ORDERED: DOXYCYC MONO100 M2 PO (12:09)
[2017-03-22 12:11] VITALS: BP 110/64
== END 2017-03-22 12:20 | disposition home or self-care (01) | DRG 153 ==
LOC: ED 10:49
PROVIDERS: Family Medicine
DX: J06.9 Acute upper respiratory infection, unspecified (principal); R05 Cough; R50.9 Fever, unspecified; R06.2 Wheezing

== ENCOUNTER 2017-05-09 06:25 | Emergency (ER) | payer OTHER ==
[~2017-05-09] VITALS: Ht 162.6 cm; Wt 79.8 kg
[~2017-05-09 06:25] MED LIST changes: +DOXYCYC MONO100 M2 PO; +PROAIR HFA108 MCG/AC PO
[2017-05-09] MEDS ORDERED: ASPERCREME LIDOCA41 TOP ×2 (08:07→11:44)
[2017-05-09 08:20] VITALS: BP 154/82
== END 2017-05-09 08:20 | disposition home or self-care (01) | DRG 605 ==
LOC: ED 06:25
DX: S30.0XXA Contusion of lower back and pelvis, initial encounter (principal); S50.01XA Contusion of right elbow, initial encounter; S00.83XA Contusion of other part of head, initial encounter; M62.838 Other muscle spasm; I11.9 Hypertensive heart disease without heart failure; E11.9 Type 2 diabetes mellitus without complications; W07.XXXA Fall from chair, initial encounter; Y92.512 Supermarket, store or market as the place of occurrence of the external cause

== ENCOUNTER 2017-05-12 13:47 | Emergency (ER) | payer OTHER ==
[~2017-05-12] VITALS: Ht 162.6 cm; Wt 79.0 kg
[~2017-05-12 13:47] MED LIST changes: +ASPERCREME LIDOCA41 TOP
[2017-05-12] MEDS ORDERED: TORADOL PO (14:53)
[2017-05-12 15:00] VITALS: BP 144/84
== END 2017-05-12 15:00 | disposition home or self-care (01) | DRG 103 ==
LOC: ED 13:47
DX: R51 Headache (principal); I11.9 Hypertensive heart disease without heart failure; E11.9 Type 2 diabetes mellitus without complications

== ENCOUNTER 2017-09-08 13:42 | Inpatient (IN) | payer OTHER ==
[2017-09-08] VITALS (11 sets, daily range): BP systolic 140–163; BP diastolic 73–103
[~2017-09-08] VITALS: Ht 162.6 cm; Wt 74.1 kg
[~2017-09-08 13:42] MED LIST changes: +TORADOL PO
[2017-09-08 14:46] LABS: HEMATOCRIT 32.9 % (37.0-47.0); HEMOGLOBIN 10.3 g/dl (12.0-16.0); IMMATURE GRANULOCYTES 0.3 % (0.0-5.0); MEAN CELL VOLUME 90.6 fL CALC (80.0-100.0); MEAN CORPUSCULAR HGB 28.4 pG CALC (26.0-32.0); MEAN CORPUSCULAR HGB CONC 31.3 g/L CALC (32.0-36.0); NEUT# 3.49 thou/uL (2.00-7.15); RED BLOOD COUNT 3.63 mill/uL (4.20-5.60); RED CELL DISTRI WIDTH 13.8 % (11.5-15.5)
[2017-09-08 14:47] LABS: URINE BILIRUBIN - DIPSTICK NEGATIVE (NEGATIVE); URINE BLOOD DIPSTICK NEGATIVE (NEGATIVE); URINE COLOR YELLOW; URINE GLUCOSE - DIPSTICK NEGATIVE (NEGATIVE); URINE KETONE NEGATIVE (NEGATIVE); URINE LEUK ESTERASE NEGATIVE (NEGATIVE); URINE NITRITE - DIPSTICK NEGATIVE (Negative); URINE PH 6.5 (4.5-8.0); URINE PROTEIN - DIPSTICK NEGATIVE (NEG-TRACE); URINE UROBILINOGEN - DIPSTICK 0.2 E.U./dL (0.2)
[2017-09-08 14:51] LABS: URINE CLARITY CLEAR
[2017-09-08 15:01] LABS: ALBUMIN 4.3 g/dL (3.2-5.0); ALKALINE PHOSPHATASE 86 u/l (38-126); ANION GAP 16 (6-22 (CALC)); BILIRUBIN, TOTAL 0.6 mg/dL (0.0-1.4); BUN 17 mg/dL (7-17); BUN/CREATININE RATIO 17 (12-20 (CALC)); CARBON DIOXIDE 28 mmol/l (22-30); CHLORIDE 104 mmol/l (95-108); GFR 57 ML/MIN (>=60 (CALC)); GFR FOR AFR.AMER. > 60 ML/MIN (>=60 (CALC)); POTASSIUM 4.1 mmol/l (3.5-5.1); SGOT/AST 22 u/l (14-36); SGPT/ALT 23 u/l (9-52); SODIUM 144 mmol/l (137-146); TOTAL PROTEIN 8.3 g/dL (6.3-8.2)
[2017-09-08 15:13] LABS: MYOGLOBIN 42 ng/mL (0 - 62)
[2017-09-08] MEDS ORDERED: COLACE100 MG PO (17:19)
[2017-09-08] MEDS ORDERED: TRAMADOL HCL50 MG PO (17:20)
[2017-09-09] VITALS (19 sets, daily range): BP systolic 117–191; BP diastolic 68–102
[2017-09-09 06:16] LABS: HEMATOCRIT 32.6 % (37.0-47.0); HEMOGLOBIN 10.3 g/dl (12.0-16.0); MEAN CELL VOLUME 89.3 fL CALC (80.0-100.0); MEAN CORPUSCULAR HGB 28.2 pG CALC (26.0-32.0); MEAN CORPUSCULAR HGB CONC 31.6 g/L CALC (32.0-36.0); RED BLOOD COUNT 3.65 mill/uL (4.20-5.60); RED CELL DISTRI WIDTH 13.9 % (11.5-15.5)
[2017-09-09 06:50] LABS: ANION GAP 14 (6-22 (CALC)); BUN 16 mg/dL (7-17); BUN/CREATININE RATIO 15 (12-20 (CALC)); CALCULATED LDLCHOLESTEROL 105 mg/dL (62-129 (CALC)); CARBON DIOXIDE 28 mmol/l (22-30); CHLORIDE 104 mmol/l (95-108); CHOLESTEROL HDL RATIO 4.9 (<4.4 (CALC)); GFR 57 ML/MIN (>=60 (CALC)); GFR FOR AFR.AMER. > 60 ML/MIN (>=60 (CALC)); HDL CHOLESTEROL 33 mg/dL (>=40); POTASSIUM 4.4 mmol/l (3.5-5.1); SODIUM 141 mmol/l (137-146); TOTAL CHOLESTEROL 163 mg/dl (0-199); TOTAL TRIGLYCERIDES 126 mg/dl (30-149); VLDL CHOLESTROL 25 mg/dl (2-49 (CALC))
[2017-09-10 00:33] VITALS: BP 141/80
[2017-09-10 02:33] VITALS: BP 173/96
[2017-09-10 04:30] VITALS: BP 126/72
[2017-09-10 05:37] LABS: ANION GAP 13 (6-22 (CALC)); BUN 17 mg/dL (7-17); BUN/CREATININE RATIO 15 (12-20 (CALC)); CARBON DIOXIDE 26 mmol/l (22-30); CHLORIDE 105 mmol/l (95-108); CREATININE 1.1 mg/dL (0.5-1.0); GFR 51 ML/MIN (>=60 (CALC)); GFR FOR AFR.AMER. > 60 ML/MIN (>=60 (CALC)); POTASSIUM 3.7 mmol/l (3.5-5.1); SODIUM 140 mmol/l (137-146)
[2017-09-10 06:12] VITALS: BP 120/80
[2017-09-10 08:00] VITALS: BP 175/91
[2017-09-10] MEDS ORDERED: AMLODIPINE BESYL5 MG PO (09:41)
[2017-09-10] MEDS ORDERED: LORCET HD 10-321 TAB PO (09:44)
[2017-09-10 10:00] VITALS: BP 163/86
== END 2017-09-10 14:00 | DRG 305 ==
LOC: ED 13:42 → ED-I 14:20 → ED 14:20 → ED-I 16:19 → ED 16:43 → ED-I 16:44 → MS2 18:30 → ICU 18:45
PROVIDERS: ADMIT Internal Medicine; ATTEND Internal Medicine
DX: I16.0 Hypertensive urgency (principal); I10 Essential (primary) hypertension; E11.9 Type 2 diabetes mellitus without complications; I25.10 Atherosclerotic heart disease of native coronary artery without angina pectoris; E78.5 Hyperlipidemia, unspecified; J44.9 Chronic obstructive pulmonary disease, unspecified; M19.90 Unspecified osteoarthritis, unspecified site; H81.12 Benign paroxysmal vertigo, left ear; I25.2 Old myocardial infarction; Z95.5 Presence of coronary angioplasty implant and graft; Z95.1 Presence of aortocoronary bypass graft; Z79.84 Long term (current) use of oral hypoglycemic drugs; Z87.891 Personal history of nicotine dependence

== ENCOUNTER 2018-01-28 08:08 | Emergency (ER) | payer OTHER ==
[~2018-01-28] VITALS: Ht 162.6 cm; Wt 79.1 kg
[~2018-01-28 08:08] MED LIST changes: +AMLODIPINE BESYL5 MG PO
[2018-01-28] MEDS ORDERED: AMLODIPINE5 MG PO (08:20)
[2018-01-28] MEDS ORDERED: TRAZODONE50 MG PO (08:22)
[2018-01-28] MEDS ORDERED: ZITHROMAX250 MG PO (08:49)
[2018-01-28] MEDS ORDERED: MEDDOSEPAK PO (08:49)
[2018-01-28] MEDS ORDERED: ALBUTEROL SUL0.083 % IN (08:49)
[2018-01-28 09:12] VITALS: BP 135/82
== END 2018-01-28 09:12 | disposition home or self-care (01) ==
LOC: ED 08:08
DX: J06.9 Acute upper respiratory infection, unspecified (principal); J40 Bronchitis, not specified as acute or chronic; R05 Cough

== ENCOUNTER 2018-02-06 07:56 | Emergency (ER) | payer OTHER ==
[~2018-02-06] VITALS: Ht 162.6 cm; Wt 80.0 kg
[~2018-02-06 07:56] MED LIST changes: +ALBUTEROL SUL0.083 % IN; +MEDDOSEPAK PO; +TRAZODONE50 MG PO
[2018-02-06] MEDS ORDERED: DOXYCYC MONO100 M2 PO (08:21)
[2018-02-06] MEDS ORDERED: CHERATUSSIN PO (08:21)
[2018-02-06 09:15] VITALS: BP 154/108
== END 2018-02-06 09:16 | disposition home or self-care (01) ==
LOC: ED 07:56
DX: J40 Bronchitis, not specified as acute or chronic (principal); I10 Essential (primary) hypertension; E11.9 Type 2 diabetes mellitus without complications; Z95.1 Presence of aortocoronary bypass graft; Z95.5 Presence of coronary angioplasty implant and graft; R05 Cough; R06.2 Wheezing

== ENCOUNTER 2018-02-15 09:23 | Emergency (ER) | payer OTHER ==
[~2018-02-15] VITALS: Ht 162.6 cm; Wt 79.1 kg
[~2018-02-15 09:23] MED LIST changes: +CHERATUSSIN PO
[2018-02-15] MEDS ORDERED: TRAMADOL HCL50 MG PO (09:51)
[2018-02-15 10:21] LABS: HEMATOCRIT 36.8 % (37.0-47.0); HEMOGLOBIN 12.1 g/dl (12.0-16.0); IMMATURE GRANULOCYTES 0.2 % (0.0-5.0); MEAN CELL VOLUME 86.6 fL CALC (80.0-100.0); MEAN CORPUSCULAR HGB 28.5 pG CALC (26.0-32.0); MEAN CORPUSCULAR HGB CONC 32.9 g/L CALC (32.0-36.0); NEUT# 3.06 thou/uL (2.00-7.15); RED BLOOD COUNT 4.25 mill/uL (4.20-5.60); RED CELL DISTRI WIDTH 14.3 % (11.5-15.5)
[2018-02-15 10:36] LABS: ANION GAP 15 (6-22 (CALC)); BUN 13 mg/dL (7-17); BUN/CREATININE RATIO 16 (12-20 (CALC)); CARBON DIOXIDE 25 mmol/l (22-30); CHLORIDE 107 mmol/l (95-108); CREATININE 0.8 mg/dL (0.5-1.0); GFR > 60 ML/MIN (>=60 (CALC)); GFR FOR AFR.AMER. > 60 ML/MIN (>=60 (CALC)); POTASSIUM 3.7 mmol/l (3.5-5.1); SODIUM 143 mmol/l (137-146)
[2018-02-15] MEDS ORDERED: TRAMADOL HYDROC50 MG PO (12:12)
[2018-02-15] MEDS ORDERED: TESSALON PER100 MG PO (12:12)
[2018-02-15 12:25] VITALS: BP 153/91
== END 2018-02-15 12:33 | disposition home or self-care (01) ==
LOC: ED 09:23
PROVIDERS: Family Medicine
DX: J06.9 Acute upper respiratory infection, unspecified (principal); J40 Bronchitis, not specified as acute or chronic; R05 Cough; I10 Essential (primary) hypertension; Z95.5 Presence of coronary angioplasty implant and graft; Z95.1 Presence of aortocoronary bypass graft

== ENCOUNTER 2018-03-07 11:46 | Emergency (ER) | payer OTHER ==
[~2018-03-07] VITALS: Ht 162.6 cm; Wt 79.0 kg
[~2018-03-07 11:46] MED LIST changes: +TESSALON PER100 MG PO; +TRAMADOL HYDROC50 MG PO
[2018-03-07 12:54] LABS: URINE BILIRUBIN - DIPSTICK NEGATIVE (NEGATIVE); URINE BLOOD DIPSTICK NEGATIVE (NEGATIVE); URINE COLOR YELLOW; URINE GLUCOSE - DIPSTICK NEGATIVE (NEGATIVE); URINE KETONE NEGATIVE (NEGATIVE); URINE LEUK ESTERASE NEGATIVE (NEGATIVE); URINE NITRITE - DIPSTICK NEGATIVE (Negative); URINE PH 7.5 (4.5-8.0); URINE PROTEIN - DIPSTICK 100 mg/dL (NEG-TRACE); URINE UROBILINOGEN - DIPSTICK 0.2 E.U./dL (0.2)
[2018-03-07 13:02] LABS: URINE EPITHELIAL CELLS MODERATE EPI/hpf (0-FEW)
[2018-03-07 13:46] LABS: HEMATOCRIT 36.9 % (37.0-47.0); HEMOGLOBIN 12.1 g/dl (12.0-16.0); IMMATURE GRANULOCYTES 0.5 % (0.0-5.0); MEAN CELL VOLUME 86.4 fL CALC (80.0-100.0); MEAN CORPUSCULAR HGB 28.3 pG CALC (26.0-32.0); MEAN CORPUSCULAR HGB CONC 32.8 g/L CALC (32.0-36.0); NEUT# 3.93 thou/uL (2.00-7.15); RED BLOOD COUNT 4.27 mill/uL (4.20-5.60); RED CELL DISTRI WIDTH 13.9 % (11.5-15.5)
[2018-03-07 14:03] LABS: ALBUMIN 4.9 g/dL (3.2-5.0); ALKALINE PHOSPHATASE 98 u/l (38-126); ANION GAP 18 (6-22 (CALC)); BILIRUBIN, TOTAL 0.7 mg/dL (0.0-1.4); BUN 12 mg/dL (7-17); BUN/CREATININE RATIO 15 (12-20 (CALC)); CARBON DIOXIDE 26 mmol/l (22-30); CHLORIDE 105 mmol/l (95-108); CREATININE 0.8 mg/dL (0.5-1.0); GFR > 60 ML/MIN (>=60 (CALC)); GFR FOR AFR.AMER. > 60 ML/MIN (>=60 (CALC)); POTASSIUM 3.7 mmol/l (3.5-5.1); SGOT/AST 24 u/l (14-36); SODIUM 145 mmol/l (137-146); TOTAL PROTEIN 8.7 g/dL (6.3-8.2)
[2018-03-07 14:52] VITALS: BP 159/84
== END 2018-03-07 14:53 | disposition home or self-care (01) ==
LOC: ED 11:46
PROVIDERS: Emergency Medicine
DX: F43.0 Acute stress reaction (principal); R55 Syncope and collapse; E11.9 Type 2 diabetes mellitus without complications; I10 Essential (primary) hypertension; Z95.1 Presence of aortocoronary bypass graft; Z95.5 Presence of coronary angioplasty implant and graft; Z63.4 Disappearance and death of family member; R94.31 Abnormal electrocardiogram [ECG] [EKG]

== ENCOUNTER 2018-03-09 01:39 | Emergency (ER) | payer OTHER ==
[~2018-03-09] VITALS: Ht 162.6 cm; Wt 79.0 kg
[2018-03-09 02:35] LABS: HEMATOCRIT 37.8 % (37.0-47.0); HEMOGLOBIN 12.4 g/dl (12.0-16.0); IMMATURE GRANULOCYTES 0.4 % (0.0-5.0); MEAN CELL VOLUME 85.5 fL CALC (80.0-100.0); MEAN CORPUSCULAR HGB 28.1 pG CALC (26.0-32.0); MEAN CORPUSCULAR HGB CONC 32.8 g/L CALC (32.0-36.0); NEUT# 12.35 thou/uL (2.00-7.15); RED BLOOD COUNT 4.42 mill/uL (4.20-5.60); RED CELL DISTRI WIDTH 13.8 % (11.5-15.5)
[2018-03-09 02:46] LABS: ALBUMIN 4.7 g/dL (3.2-5.0); ALKALINE PHOSPHATASE 90 u/l (38-126); AMYLASE 40 u/l (30-110); ANION GAP 17 (6-22 (CALC)); BILIRUBIN, TOTAL 0.8 mg/dL (0.0-1.4); BUN 22 mg/dL (7-17); BUN/CREATININE RATIO 24 (12-20 (CALC)); CARBON DIOXIDE 27 mmol/l (22-30); CHLORIDE 104 mmol/l (95-108); GFR 57 ML/MIN (>=60 (CALC)); GFR FOR AFR.AMER. > 60 ML/MIN (>=60 (CALC)); LIPASE 46 u/l (23-300); SGOT/AST 21 u/l (14-36); SODIUM 143 mmol/l (137-146); TOTAL PROTEIN 8.1 g/dL (6.3-8.2)
[2018-03-09 02:59] LABS: MYOGLOBIN 48 ng/mL (0 - 62)
[2018-03-09 03:18] LABS: URINE BILIRUBIN - DIPSTICK NEGATIVE (NEGATIVE); URINE BLOOD DIPSTICK NEGATIVE (NEGATIVE); URINE COLOR YELLOW; URINE GLUCOSE - DIPSTICK NEGATIVE (NEGATIVE); URINE KETONE NEGATIVE (NEGATIVE); URINE LEUK ESTERASE NEGATIVE (NEGATIVE); URINE NITRITE - DIPSTICK NEGATIVE (Negative); URINE PH 6.5 (4.5-8.0); URINE PROTEIN - DIPSTICK 100 mg/dL (NEG-TRACE); URINE UROBILINOGEN - DIPSTICK 0.2 E.U./dL (0.2)
[2018-03-09 03:33] LABS: URINE RBC 0-2 RBC/hpf (0-5); URINE SQUAMOUS EPITHELIAL CELL FEW EPI/hpf (0-FEW); URINE WBC 0-2 WBC/hpf (0-5)
[2018-03-09 03:34] LABS: URINE MUCUS FEW hpf (NONE-FEW)
[2018-03-09 05:57] VITALS: BP 152/85
== END 2018-03-09 06:06 | disposition home or self-care (01) ==
LOC: ED 01:39
PROVIDERS: Emergency Medicine
DX: R11.2 Nausea with vomiting, unspecified (principal); R19.7 Diarrhea, unspecified; I10 Essential (primary) hypertension; E11.9 Type 2 diabetes mellitus without complications; Z95.1 Presence of aortocoronary bypass graft; Z95.5 Presence of coronary angioplasty implant and graft
CPT/HCPCS: S0164

== ENCOUNTER 2018-06-23 07:09 | Day surgery (SDC) | payer OTHER ==
[~2018-06-23] VITALS: Ht 162.6 cm; Wt 80.3 kg
[~2018-06-23 07:09] MED LIST changes: +BACLOFEN10 MG PO; +GABAPENTIN100 MG PO; +STOOL SOFTENER100 MG PO; +TRIAMCINOLON0.11 EX
[2018-06-23 11:57] VITALS: BP 145/84
== END 2018-06-23 11:45 | disposition home or self-care (01) ==
LOC: ENDO 07:09 → ORM 10:00 → ENDO 11:45
PROVIDERS: ATTEND Surgery
DX: D12.5 Benign neoplasm of sigmoid colon (principal); K57.31 Diverticulosis of large intestine without perforation or abscess with bleeding; I10 Essential (primary) hypertension; E11.9 Type 2 diabetes mellitus without complications; Z86.010 Personal history of colon polyps

== ENCOUNTER 2018-10-06 11:52 | Emergency (ER) | payer OTHER ==
[~2018-10-06] VITALS: Ht 162.6 cm; Wt 80.0 kg
[2018-10-06] MEDS ORDERED: PREDNISONE20 MG PO (12:44)
[2018-10-06] MEDS ORDERED: VENTOLIN HFA IN (12:44)
[2018-10-06] MEDS ORDERED: ROBITUSSIN AC10 ML PO (12:44)
[2018-10-06] MEDS ORDERED: ZITHROMAX500 MG PO (12:44)
[2018-10-06] MEDS ORDERED: ALBUTEROL SUL0.083 % IN (12:44)
[2018-10-06 12:53] VITALS: BP 138/88
== END 2018-10-06 12:55 | disposition home or self-care (01) ==
LOC: ED 11:52
DX: J40 Bronchitis, not specified as acute or chronic (principal); R05 Cough; R50.9 Fever, unspecified

== ENCOUNTER 2018-11-19 08:03 | Day surgery (SDC) | payer OTHER ==
[~2018-11-19] VITALS: Ht 162.6 cm; Wt 81.2 kg
[~2018-11-19 08:03] MED LIST changes: +ATENOLOL25 MG PO; +PREDNISONE20 MG PO; +ROBITUSSIN AC10 ML PO; +VENTOLIN HFA IN; +ZITHROMAX500 MG PO
[2018-11-19 10:44] VITALS: BP 130/67
== END 2018-11-19 11:00 | disposition home or self-care (01) ==
LOC: ENDO 08:03 → ORM 08:45 → ENDO 08:45
PROVIDERS: ATTEND Surgery
DX: K21.0 Gastro-esophageal reflux disease with esophagitis (principal); K44.9 Diaphragmatic hernia without obstruction or gangrene; E11.9 Type 2 diabetes mellitus without complications; I10 Essential (primary) hypertension; Z95.1 Presence of aortocoronary bypass graft; Z79.84 Long term (current) use of oral hypoglycemic drugs; Z79.899 Other long term (current) drug therapy

== ENCOUNTER 2019-03-30 14:48 | Inpatient (IN) | payer OTHER ==
[~2019-03-30] VITALS: Ht 162.6 cm; Wt 80.0 kg
[2019-03-30 15:41] LABS: HEMATOCRIT 36.2 % (37.0-47.0); HEMOGLOBIN 11.5 g/dl (12.0-16.0); IMMATURE GRANULOCYTES 0.8 % (0.0-5.0); MEAN CELL VOLUME 87.2 fL CALC (80.0-100.0); MEAN CORPUSCULAR HGB 27.7 pG CALC (26.0-32.0); MEAN CORPUSCULAR HGB CONC 31.8 g/L CALC (32.0-36.0); NEUT# 17.27 thou/uL (2.00-7.15); RED BLOOD COUNT 4.15 mill/uL (4.20-5.60)
[2019-03-30 16:10] LABS: ALBUMIN 4.3 g/dL (3.2-5.0); ALKALINE PHOSPHATASE 76 u/l (38-126); ANION GAP 16 (6-22 (CALC)); BILIRUBIN, TOTAL 1.2 mg/dL (0.0-1.4); BUN 12 mg/dL (8-23); BUN/CREATININE RATIO 13 (12-20 (CALC)); CARBON DIOXIDE 25 mmol/l (22-30); CHLORIDE 100 mmol/l (95-108); GFR 56 ML/MIN (>=60 (CALC)); GFR FOR AFR.AMER. > 60 ML/MIN (>=60 (CALC)); POTASSIUM 3.6 mmol/l (3.5-5.1); SGOT/AST 22 u/l (9-36); SODIUM 137 mmol/l (137-146)
[2019-03-30 18:13] VITALS: BP 124/85
[2019-03-31 04:00] VITALS: BP 130/71
[2019-03-31 07:48] VITALS: BP 141/82
[2019-03-31 12:24] LABS: URINE BILIRUBIN - DIPSTICK NEGATIVE (NEGATIVE); URINE BLOOD DIPSTICK NEGATIVE (NEGATIVE); URINE COLOR YELLOW; URINE GLUCOSE - DIPSTICK NEGATIVE (NEGATIVE); URINE KETONE NEGATIVE (NEGATIVE); URINE LEUK ESTERASE NEGATIVE (NEGATIVE); URINE NITRITE - DIPSTICK NEGATIVE (Negative); URINE PROTEIN - DIPSTICK 100 mg/dL (NEG-TRACE)
[2019-03-31 13:26] LABS: URINE RBC 0-2 RBC/hpf (0-5); URINE SQUAMOUS EPITHELIAL CELL FEW EPI/hpf (0-FEW); URINE WBC 0-2 WBC/hpf (0-5)
[2019-03-31 14:57] VITALS: BP 135/80
[2019-03-31 19:25] VITALS: BP 134/77
[2019-03-31 20:50] VITALS: BP 146/77
[2019-04-01 03:25] VITALS: BP 117/56
[2019-04-01 05:22] LABS: HEMATOCRIT 31.8 % (37.0-47.0); HEMOGLOBIN 10.2 g/dl (12.0-16.0); IMMATURE GRANULOCYTES 0.6 % (0.0-5.0); MEAN CELL VOLUME 87.8 fL CALC (80.0-100.0); MEAN CORPUSCULAR HGB 28.2 pG CALC (26.0-32.0); MEAN CORPUSCULAR HGB CONC 32.1 g/L CALC (32.0-36.0); NEUT# 9.02 thou/uL (2.00-7.15); RED BLOOD COUNT 3.62 mill/uL (4.20-5.60); RED CELL DISTRI WIDTH 13.7 % (11.5-15.5)
[2019-04-01 05:38] LABS: ANION GAP 11 (6-22 (CALC)); BUN 10 mg/dL (8-23); BUN/CREATININE RATIO 11 (12-20 (CALC)); CARBON DIOXIDE 27 mmol/l (22-30); CHLORIDE 104 mmol/l (95-108); CREATININE 0.9 mg/dL (0.5-1.0); GFR > 60 ML/MIN (>=60 (CALC)); GFR FOR AFR.AMER. > 60 ML/MIN (>=60 (CALC)); MAGNESIUM 1.9 mg/dL (1.6-2.3); POTASSIUM 3.7 mmol/l (3.5-5.1); SODIUM 138 mmol/l (137-146)
[2019-04-01 07:19] VITALS: BP 122/62
[2019-04-01 08:37] VITALS: BP 122/62
[2019-04-01] MEDS ORDERED: BIOTUSSIN PO (10:48)
[2019-04-01] MEDS ORDERED: LEVAQUIN750 MG PO (10:48)
[2019-10-20] MEDS ORDERED: GABAPENTIN100 MG PO (09:55)
[2019-10-20] MEDS ORDERED: LASIX40 MG PO (09:55)
[2019-10-20] MEDS ORDERED: VOLTAREN3% GEL TOP (09:55)
[2019-10-20] MEDS ORDERED: SYMBICORT1 AE1 IN (09:56)
[2019-10-20] MEDS ORDERED: MELOXICAM7.5 MG PO (09:56)
[2019-10-20] MEDS ORDERED: K-TABS10 MEQ PO (09:57)
[2019-10-20] MEDS ORDERED: PREDNISONE10 MG PO (09:57)
[2019-11-01] MEDS ORDERED: OMEPRAZOLE20 MG PO (10:44)
== END 2019-04-01 12:48 | disposition home or self-care (01) | DRG 194 ==
LOC: ED 14:48 → ED-I 16:50 → ED 17:17 → MS2 17:18
PROVIDERS: Emergency Medicine; Nurse Practitioner Family; ADMIT Internal Medicine; ATTEND Internal Medicine
DX: J18.9 Pneumonia, unspecified organism (principal); J44.0 Chronic obstructive pulmonary disease with (acute) lower respiratory infection; I10 Essential (primary) hypertension; E11.9 Type 2 diabetes mellitus without complications; I25.10 Atherosclerotic heart disease of native coronary artery without angina pectoris; I25.2 Old myocardial infarction; E78.5 Hyperlipidemia, unspecified; Z95.5 Presence of coronary angioplasty implant and graft; Z87.891 Personal history of nicotine dependence; Z95.1 Presence of aortocoronary bypass graft; Z79.84 Long term (current) use of oral hypoglycemic drugs
CPT/HCPCS: J1956

== ENCOUNTER 2019-04-05 10:16 | Emergency (ER) | payer OTHER ==
[~2019-04-05 10:16] MED LIST changes: +BIOTUSSIN PO; +LEVAQUIN750 MG PO
[2019-10-20] MEDS ORDERED: LASIX40 MG PO (09:55)
[2019-10-20] MEDS ORDERED: GABAPENTIN100 MG PO (09:55)
[2019-10-20] MEDS ORDERED: VOLTAREN3% GEL TOP (09:55)
[2019-10-20] MEDS ORDERED: SYMBICORT1 AE1 IN (09:56)
[2019-10-20] MEDS ORDERED: MELOXICAM7.5 MG PO (09:56)
[2019-10-20] MEDS ORDERED: PREDNISONE10 MG PO (09:57)
[2019-10-20] MEDS ORDERED: K-TABS10 MEQ PO (09:57)
[2019-11-01] MEDS ORDERED: OMEPRAZOLE20 MG PO (10:44)
== END 2019-04-05 11:05 | disposition left against medical advice (07) ==
LOC: ED 10:16
DX: Z91.19 Patient's noncompliance with other medical treatment and regimen (principal)

== ENCOUNTER 2019-05-02 12:04 | Emergency (ER) | payer OTHER ==
[2019-05-02] MEDS ORDERED: AMLODIPINE BESY10 MG PO (12:55)
[2019-05-02] MEDS ORDERED: CARVEDILOL12.5 MG PO (12:55)
[2019-05-02] MEDS ORDERED: LIPITOR80 M1 PO (12:56)
[2019-05-02] MEDS ORDERED: LOSARTAN POTAS100 MG PO (12:56)
[2019-05-02] MEDS ORDERED: PROAIR HFA108 MCG/AC IN (12:57)
[2019-05-02] MEDS ORDERED: VITAMIN D2000 UNI2 PO (12:57)
[2019-05-02] MEDS ORDERED: PANTOPRAZOLE SO40 M1 PO (12:58)
[2019-05-02] MEDS ORDERED: OXYBUTYNIN CHLOR5 M1 PO (12:58)
[2019-05-02] MEDS ORDERED: COLACE100 MG PO (13:00)
[2019-05-02] MEDS ORDERED: ALBUTEROL SUL0.083 % IN ×2 (13:16)
[2019-05-02] MEDS ORDERED: VENTOLIN HFA IN ×2 (13:16)
[2019-05-02] MEDS ORDERED: TESSALON PER100 MG PO ×2 (13:16)
[2019-05-02 13:25] VITALS: BP 149/78
[2019-10-20] MEDS ORDERED: GABAPENTIN100 MG PO (09:55)
[2019-10-20] MEDS ORDERED: LASIX40 MG PO (09:55)
[2019-10-20] MEDS ORDERED: VOLTAREN3% GEL TOP (09:55)
[2019-10-20] MEDS ORDERED: SYMBICORT1 AE1 IN (09:56)
[2019-10-20] MEDS ORDERED: MELOXICAM7.5 MG PO (09:56)
[2019-10-20] MEDS ORDERED: PREDNISONE10 MG PO (09:57)
[2019-10-20] MEDS ORDERED: K-TABS10 MEQ PO (09:57)
[2019-11-01] MEDS ORDERED: OMEPRAZOLE20 MG PO (10:44)
== END 2019-05-02 13:25 | disposition home or self-care (01) ==
LOC: ED 12:04
DX: J45.909 Unspecified asthma, uncomplicated (principal); T48.6X6A Underdosing of antiasthmatics, initial encounter; Z91.128 Patient's intentional underdosing of medication regimen for other reason; E11.9 Type 2 diabetes mellitus without complications; I10 Essential (primary) hypertension; Z95.1 Presence of aortocoronary bypass graft; Z95.5 Presence of coronary angioplasty implant and graft

== ENCOUNTER 2019-09-01 14:12 | Emergency (ER) | payer OTHER ==
[~2019-09-01] VITALS: Ht 162.6 cm; Wt 81.0 kg
[~2019-09-01 14:12] MED LIST changes: +CARVEDILOL12.5 MG PO; +LIPITOR80 M1 PO; +LOSARTAN POTAS100 MG PO; +OXYBUTYNIN CHLOR5 M1 PO; +PANTOPRAZOLE SO40 M1 PO; +PROAIR HFA108 MCG/AC IN; +VITAMIN D2000 UNI2 PO
[2019-09-01 15:16] LABS: HEMATOCRIT 37.3 % (37.0-47.0); HEMOGLOBIN 11.9 g/dl (12.0-16.0); IMMATURE GRANULOCYTES 0.3 % (0.0-5.0); MEAN CELL VOLUME 86.5 fL CALC (80.0-100.0); MEAN CORPUSCULAR HGB 27.6 pG CALC (26.0-32.0); MEAN CORPUSCULAR HGB CONC 31.9 g/dL CAL (32.0-36.0); NEUT# 5.32 thou/uL (2.00-7.15); RED BLOOD COUNT 4.31 mill/uL (4.20-5.60); RED CELL DISTRI WIDTH 13.4 % (11.5-15.5)
[2019-09-01 15:36] LABS: ALBUMIN 4.7 g/dL (3.2-5.0); ALKALINE PHOSPHATASE 100 u/l (38-126); ANION GAP 14 (6-22 (CALC)); BILIRUBIN, TOTAL 0.5 mg/dL (0.0-1.4); BUN 13 mg/dL (8-23); BUN/CREATININE RATIO 13 (12-20 (CALC)); CARBON DIOXIDE 26 mmol/l (22-30); CHLORIDE 103 mmol/l (95-108); GFR 56 ML/MIN (>=60 (CALC)); GFR FOR AFR.AMER. > 60 ML/MIN (>=60 (CALC)); POTASSIUM 4.1 mmol/l (3.5-5.1); SGOT/AST 21 u/l (9-36); SODIUM 139 mmol/l (137-146); TOTAL PROTEIN 8.2 g/dL (6.3-8.2)
[2019-09-01 17:05] LABS: URINE BILIRUBIN - DIPSTICK NEGATIVE (NEGATIVE); URINE BLOOD DIPSTICK NEGATIVE (NEGATIVE); URINE COLOR YELLOW; URINE GLUCOSE - DIPSTICK NEGATIVE (NEGATIVE); URINE KETONE 15 mg/dL (NEGATIVE); URINE LEUK ESTERASE NEGATIVE (NEGATIVE); URINE NITRITE - DIPSTICK NEGATIVE (Negative); URINE PROTEIN - DIPSTICK >=300 mg/dL (NEG-TRACE); URINE SPECIFIC GRAVITY 1.025; URINE UROBILINOGEN - DIPSTICK 0.2 E.U./dL (0.2)
[2019-09-01 17:08] LABS: URINE RBC 0-2 RBC/hpf (0-5); URINE SQUAMOUS EPITHELIAL CELL FEW EPI/hpf (0-FEW); URINE WBC 0-2 WBC/hpf (0-5)
[2019-09-01 17:36] VITALS: BP 172/89
[2019-09-01] MEDS ORDERED: DICYCLOMINE10 MG PO ×2 (17:37)
[2019-09-01] MEDS ORDERED: ZOFRAN4 MG/TAB PO ×2 (17:37)
[2019-10-20] MEDS ORDERED: GABAPENTIN100 MG PO (09:55)
[2019-10-20] MEDS ORDERED: LASIX40 MG PO (09:55)
[2019-10-20] MEDS ORDERED: VOLTAREN3% GEL TOP (09:55)
[2019-10-20] MEDS ORDERED: MELOXICAM7.5 MG PO (09:56)
[2019-10-20] MEDS ORDERED: SYMBICORT1 AE1 IN (09:56)
[2019-10-20] MEDS ORDERED: K-TABS10 MEQ PO (09:57)
[2019-10-20] MEDS ORDERED: PREDNISONE10 MG PO (09:57)
[2019-11-01] MEDS ORDERED: OMEPRAZOLE20 MG PO (10:44)
== END 2019-09-01 17:41 | disposition home or self-care (01) ==
LOC: ED 14:12
PROVIDERS: Student in an Organized Health Care Education/Training Program
DX: R10.12 Left upper quadrant pain (principal); R10.32 Left lower quadrant pain; K57.30 Diverticulosis of large intestine without perforation or abscess without bleeding; I10 Essential (primary) hypertension; E11.9 Type 2 diabetes mellitus without complications; F17.200 Nicotine dependence, unspecified, uncomplicated; Z95.1 Presence of aortocoronary bypass graft; Z95.5 Presence of coronary angioplasty implant and graft; Z79.84 Long term (current) use of oral hypoglycemic drugs
CPT/HCPCS: Q9967

== ENCOUNTER 2019-10-26 06:43 | Day surgery (SDC) | payer OTHER ==
[~2019-10-26 06:43] MED LIST changes: +DICYCLOMINE10 MG PO; +K-TABS10 MEQ PO; +LASIX40 MG PO; +PREDNISONE10 MG PO; +SYMBICORT1 AE1 IN; +VOLTAREN3% GEL TOP; +ZOFRAN4 MG/TAB PO
[2019-10-26 08:54] VITALS: BP 141/82
[2019-11-01] MEDS ORDERED: OMEPRAZOLE20 MG PO (10:44)
== END 2019-10-26 09:15 | disposition home or self-care (01) ==
LOC: ENDO 06:43 → ORM 10:30
PROVIDERS: ATTEND Surgery
DX: K44.9 Diaphragmatic hernia without obstruction or gangrene (principal); K57.30 Diverticulosis of large intestine without perforation or abscess without bleeding; K64.8 Other hemorrhoids; I10 Essential (primary) hypertension; E11.9 Type 2 diabetes mellitus without complications; Z95.1 Presence of aortocoronary bypass graft; Z95.5 Presence of coronary angioplasty implant and graft; Z79.84 Long term (current) use of oral hypoglycemic drugs; Z86.010 Personal history of colon polyps; Z79.899 Other long term (current) drug therapy; Z20.828 Contact with and (suspected) exposure to other viral communicable diseases

== ENCOUNTER 2019-11-03 11:00 | Emergency (ER) | payer OTHER ==
[~2019-11-03] VITALS: Ht 162.6 cm; Wt 89.0 kg
[~2019-11-03 11:00] MED LIST changes: +OMEPRAZOLE20 MG PO
[2019-11-03] MEDS ORDERED: CYCLOBENZAPR5 MG PO (11:55)
[2019-11-03 12:04] VITALS: BP 156/80
== END 2019-11-03 12:04 | disposition home or self-care (01) ==
LOC: ED 11:00
DX: M79.641 Pain in right hand (principal); I10 Essential (primary) hypertension; E11.9 Type 2 diabetes mellitus without complications; Z95.1 Presence of aortocoronary bypass graft; Z95.5 Presence of coronary angioplasty implant and graft; Z79.84 Long term (current) use of oral hypoglycemic drugs

== ENCOUNTER 2020-01-16 17:56 | Emergency (ER) | payer OTHER ==
[~2020-01-16] VITALS: Ht 162.6 cm; Wt 68.0 kg
[~2020-01-16 17:56] MED LIST changes: +CYCLOBENZAPR5 MG PO
[2020-01-16 19:09] LABS: HEMATOCRIT 37.6 % (37.0-47.0); IMMATURE GRANULOCYTES 0.3 % (0.0-5.0); MEAN CELL VOLUME 86.4 fL CALC (80.0-100.0); MEAN CORPUSCULAR HGB 27.6 pG CALC (26.0-32.0); MEAN CORPUSCULAR HGB CONC 31.9 g/dL CAL (32.0-36.0); NEUT# 4.65 thou/uL (2.00-7.15); RED BLOOD COUNT 4.35 mill/uL (4.20-5.60); RED CELL DISTRI WIDTH 13.8 % (11.5-15.5)
[2020-01-16 19:26] LABS: ALBUMIN 4.5 g/dL (3.2-5.0); AMYLASE 97 u/l (30-110); BILIRUBIN, TOTAL 0.4 mg/dL (0.0-1.4); CREATININE 1.2 mg/dL (0.5-1.0); LIPASE 57 u/l (23-300); POTASSIUM 4.2 mmol/l (3.5-5.1); TOTAL PROTEIN 8.2 g/dL (6.3-8.2)
[2020-01-16 19:36] LABS: URINE BILIRUBIN - DIPSTICK NEGATIVE (NEGATIVE); URINE BLOOD DIPSTICK NEGATIVE (NEGATIVE); URINE COLOR YELLOW; URINE GLUCOSE - DIPSTICK NEGATIVE (NEGATIVE); URINE KETONE NEGATIVE (NEGATIVE); URINE LEUK ESTERASE NEGATIVE (NEGATIVE); URINE NITRITE - DIPSTICK NEGATIVE (Negative); URINE PROTEIN - DIPSTICK 100 mg/dL (NEG-TRACE); URINE SPECIFIC GRAVITY 1.025; URINE UROBILINOGEN - DIPSTICK 0.2 E.U./dL (0.2)
[2020-01-16 19:38] LABS: URINE RBC 0-2 RBC/hpf (0-5); URINE SQUAMOUS EPITHELIAL CELL FEW EPI/hpf (0-FEW); URINE WBC 0-2 WBC/hpf (0-5)
[2020-01-16 19:38] LABS: MYOGLOBIN 50 ng/mL (0 - 62)
[2020-01-16 20:33] VITALS: BP 178/99
== END 2020-01-16 21:14 | disposition home or self-care (01) ==
LOC: ED 17:56
PROVIDERS: Emergency Medicine
DX: B34.9 Viral infection, unspecified (principal); I10 Essential (primary) hypertension; E11.9 Type 2 diabetes mellitus without complications; K21.9 Gastro-esophageal reflux disease without esophagitis; T50.996A Underdosing of other drugs, medicaments and biological substances, initial encounter; Z91.128 Patient's intentional underdosing of medication regimen for other reason; Z95.1 Presence of aortocoronary bypass graft; Z95.5 Presence of coronary angioplasty implant and graft; Z79.84 Long term (current) use of oral hypoglycemic drugs; Z20.828 Contact with and (suspected) exposure to other viral communicable diseases

== ENCOUNTER 2020-02-20 09:04 | Observation (INO) | payer OTHER ==
[~2020-02-20] VITALS: Ht 152.4 cm; Wt 81.7 kg
[2020-02-20 10:10] LABS: HEMATOCRIT 36.9 % (37.0-47.0); HEMOGLOBIN 11.7 g/dl (12.0-16.0); IMMATURE GRANULOCYTES 0.5 % (0.0-5.0); MEAN CELL VOLUME 88.5 fL CALC (80.0-100.0); MEAN CORPUSCULAR HGB 28.1 pG CALC (26.0-32.0); MEAN CORPUSCULAR HGB CONC 31.7 g/dL CAL (32.0-36.0); NEUT# 3.85 thou/uL (2.00-7.15); RED BLOOD COUNT 4.17 mill/uL (4.20-5.60); RED CELL DISTRI WIDTH 14.1 % (11.5-15.5)
[2020-02-20 10:29] LABS: D-DIMER 0.21 mg/L (0.19-0.60)
[2020-02-20 10:35] LABS: ALBUMIN 4.3 g/dL (3.2-5.0); ALKALINE PHOSPHATASE 76 u/l (38-126); ANION GAP 13 (6-22 (CALC)); BILIRUBIN, TOTAL 0.5 mg/dL (0.0-1.4); BUN 15 mg/dL (8-23); BUN/CREATININE RATIO 15 (12-20 (CALC)); CARBON DIOXIDE 29 mmol/l (22-30); CHLORIDE 105 mmol/l (95-108); GFR 56 ML/MIN (>=60 (CALC)); GFR FOR AFR.AMER. > 60 ML/MIN (>=60 (CALC)); LIPASE 58 u/l (23-300); POTASSIUM 4.1 mmol/l (3.5-5.1); SGOT/AST 18 u/l (9-36); SODIUM 143 mmol/l (137-146); TOTAL PROTEIN 7.6 g/dL (6.3-8.2)
[2020-02-20 10:39] LABS: ACT PARTIAL THROMBO TIME 25.8 SECONDS (20.0-32.5)
[2020-02-20 12:13] VITALS: BP 159/84
[2020-02-20 15:26] VITALS: BP 147/82
[2020-02-20 20:00] VITALS: BP 140/83
[2020-02-21] VITALS: BP 129/76
[2020-02-21 04:00] VITALS: BP 131/72
[2020-02-21 07:15] VITALS: BP 140/80
[2020-02-21 10:35] VITALS: BP 139/81
== END 2020-02-21 11:22 | disposition home or self-care (01) ==
LOC: ED 09:04 → ED-I 11:09 → ED 11:21 → MS2 11:22
PROVIDERS: ADMIT Internal Medicine; ATTEND Internal Medicine
DX: R07.89 Other chest pain (principal); R94.31 Abnormal electrocardiogram [ECG] [EKG]; I25.10 Atherosclerotic heart disease of native coronary artery without angina pectoris; I10 Essential (primary) hypertension; E11.9 Type 2 diabetes mellitus without complications; J44.9 Chronic obstructive pulmonary disease, unspecified; E78.5 Hyperlipidemia, unspecified; I25.2 Old myocardial infarction; Z95.5 Presence of coronary angioplasty implant and graft; Z95.1 Presence of aortocoronary bypass graft; Z79.84 Long term (current) use of oral hypoglycemic drugs; Z87.891 Personal history of nicotine dependence; Z20.822 Contact with and (suspected) exposure to COVID-19
CPT/HCPCS: G0378

== ENCOUNTER 2021-04-07 15:32 | Emergency (ER) | payer OTHER ==
[~2021-04-07] VITALS: Ht 162.6 cm; Wt 81.4 kg
[~2021-04-07 15:32] MED LIST changes: +LINZESS290 MCG PO
[2021-04-07 16:20] LABS: HEMATOCRIT 36.9 % (37.0-47.0); HEMOGLOBIN 11.9 g/dl (12.0-16.0); IMMATURE GRANULOCYTES 0.2 % (0.0-5.0); MEAN CELL VOLUME 88.1 fL CALC (80.0-100.0); MEAN CORPUSCULAR HGB 28.4 pG CALC (26.0-32.0); MEAN CORPUSCULAR HGB CONC 32.2 g/dL CAL (32.0-36.0); NEUT# 2.28 thou/uL (2.00-7.15); RED BLOOD COUNT 4.19 mill/uL (4.20-5.60)
[2021-04-07 16:29] LABS: ALBUMIN 4.5 g/dL (3.2-5.0); ALKALINE PHOSPHATASE 79 u/l (38-126); AMYLASE 89 u/l (30-110); ANION GAP 16 (6-22 (CALC)); BILIRUBIN, TOTAL 0.5 mg/dL (0.0-1.4); BUN 20 mg/dL (8-23); BUN/CREATININE RATIO 16 (12-20 (CALC)); CARBON DIOXIDE 27 mmol/l (22-30); CHLORIDE 106 mmol/l (95-108); CREATININE 1.2 mg/dL (0.5-1.0); GFR 45 ML/MIN (>=60 (CALC)); GFR FOR AFR.AMER. 55 ML/MIN (>=60 (CALC)); LIPASE 65 u/l (23-300); POTASSIUM 3.7 mmol/l (3.5-5.1); SGOT/AST 21 u/l (9-36); SODIUM 146 mmol/l (137-146); TOTAL PROTEIN 8.1 g/dL (6.3-8.2)
[2021-04-07 16:37] LABS: ACT PARTIAL THROMBO TIME 25.6 SECONDS (20.0-32.5); PROTHROMBIN TIME 10.9 SECONDS (9.0-12.5)
[2021-04-07] MEDS ORDERED: FLEXERIL5 M1 PO (18:43)
[2021-04-07 19:28] VITALS: BP 152/84
== END 2021-04-07 19:35 | disposition home or self-care (01) | DRG 552 ==
LOC: ED 15:32
DX: S16.1XXA Strain of muscle, fascia and tendon at neck level, initial encounter (principal); S00.93XA Contusion of unspecified part of head, initial encounter; S20.219A Contusion of unspecified front wall of thorax, initial encounter; M25.511 Pain in right shoulder; M25.551 Pain in right hip; M25.561 Pain in right knee; I10 Essential (primary) hypertension; E11.9 Type 2 diabetes mellitus without complications; V43.63XA Car passenger injured in collision with pick-up truck in traffic accident, initial encounter; Z95.1 Presence of aortocoronary bypass graft; Z95.5 Presence of coronary angioplasty implant and graft; Z79.84 Long term (current) use of oral hypoglycemic drugs
CPT/HCPCS: J2060; Q9967

== ENCOUNTER 2022-03-05 18:08 | Emergency (ER) | payer OTHER ==
[~2022-03-05] VITALS: Ht 162.6 cm; Wt 81.1 kg
[~2022-03-05 18:08] MED LIST changes: +CLOPIDOGREL75 MG PO; +FLEXERIL5 M1 PO; +LACTULOSE10 GM PO; +METHOCARBAMOL750 MG PO; +NITROGLYCERIN0.4 MG
[2022-03-05] MEDS ORDERED: LEVOCETIRIZINE D5 MG PO (18:48)
[2022-03-05] MEDS ORDERED: FLONASE AL50 MCG/ACT (18:48)
[2022-03-05 19:09] VITALS: BP 180/96
[2022-03-06] MEDS ORDERED: TYLENOL # 31 TA1 PO (19:33)
== END 2022-03-05 19:15 | disposition home or self-care (01) ==
LOC: ED 18:08
DX: J32.9 Chronic sinusitis, unspecified (principal); K04.7 Periapical abscess without sinus; I10 Essential (primary) hypertension; E11.9 Type 2 diabetes mellitus without complications; Z95.1 Presence of aortocoronary bypass graft; Z95.5 Presence of coronary angioplasty implant and graft; Z79.84 Long term (current) use of oral hypoglycemic drugs

== ENCOUNTER 2022-03-06 17:46 | Emergency (ER) | payer OTHER ==
[~2022-03-06] VITALS: Ht 162.6 cm; Wt 72.0 kg
[~2022-03-06 17:46] MED LIST changes: +FLONASE AL50 MCG/ACT; +LEVOCETIRIZINE D5 MG PO
[2022-03-06 18:18] VITALS: BP 177/92
[2022-03-06 18:27] VITALS: BP 177/148
[2022-03-06 18:30] VITALS: BP 176/94
[2022-03-06 18:35] VITALS: BP 165/91
[2022-03-06 19:06] LABS: BASO% 0.3 % (0-3); EOS% 2.6 % (0-8); HEMATOCRIT 36.8 % (37.0-47.0); HEMOGLOBIN 11.5 g/dl (12.0-16.0); IMMATURE GRANULOCYTES 0.1 % (0.0-5.0); LYMPH% 14.6 % (15-41); MEAN CELL VOLUME 89.1 fL CALC (80.0-100.0); MEAN CORPUSCULAR HGB 27.8 pG CALC (26.0-32.0); MEAN CORPUSCULAR HGB CONC 31.3 g/dL CAL (32.0-36.0); MONO% 12.8 % (2-13); NEUT# 5.53 thou/uL (2.00-7.15); NEUT% 69.6 % (42-76); RED BLOOD COUNT 4.13 mill/uL (4.20-5.60); RED CELL DISTRI WIDTH 13.8 % (11.5-15.5)
[2022-03-06 19:21] LABS: ALBUMIN 4.5 g/dL (3.2-5.0); BILIRUBIN, TOTAL 0.3 mg/dL (0.0-1.4); CREATININE 1.2 mg/dL (0.5-1.0); POTASSIUM 3.8 mmol/l (3.5-5.1)
[2022-03-06 19:30] VITALS: BP 181/98
[2022-03-06] MEDS ORDERED: TYLENOL # 31 TA1 PO (19:33)
[2022-03-06 19:49] VITALS: BP 181/98
== END 2022-03-06 19:50 | disposition home or self-care (01) ==
LOC: ED 17:46
PROVIDERS: Family Medicine
DX: J32.9 Chronic sinusitis, unspecified (principal); I10 Essential (primary) hypertension; E11.9 Type 2 diabetes mellitus without complications; Z95.1 Presence of aortocoronary bypass graft; Z95.5 Presence of coronary angioplasty implant and graft; Z79.84 Long term (current) use of oral hypoglycemic drugs

== ENCOUNTER 2022-04-01 09:15 | Day surgery (SDC) | payer OTHER ==
[~2022-04-01] VITALS: Ht 162.6 cm; Wt 78.0 kg
[~2022-04-01 09:15] MED LIST changes: +FAMOTIDINE20 M1 PO; +HYDROCODONE BIT1 TA7 PO; +STOOL SOFTNR100 M1 PO; +TYLENOL # 31 TA1 PO
[2022-04-01 12:54] VITALS: BP 164/86
== END 2022-04-01 12:07 | disposition home or self-care (01) ==
LOC: ENDO 09:15 → ORM 11:40 → ENDO 12:07 → ORM 12:40
PROVIDERS: ATTEND Internal Medicine Gastroenterology
DX: K22.2 Esophageal obstruction (principal); K29.70 Gastritis, unspecified, without bleeding; K44.9 Diaphragmatic hernia without obstruction or gangrene; K21.9 Gastro-esophageal reflux disease without esophagitis; K59.09 Other constipation; Z79.899 Other long term (current) drug therapy

== ENCOUNTER 2022-06-21 12:34 | Emergency (ER) | payer OTHER ==
[~2022-06-21] VITALS: Ht 162.6 cm; Wt 79.6 kg
[2022-06-21 12:48] VITALS: BP 147/84
[2022-06-21 13:00] VITALS: BP 145/77
[2022-06-21] MEDS ORDERED: TYLENOL # 31 TA1 PO (13:02)
[2022-06-21 13:15] VITALS: BP 135/80
[2022-06-21 13:20] VITALS: BP 135/80
== END 2022-06-21 13:26 | disposition home or self-care (01) ==
LOC: ED 12:34
DX: K04.7 Periapical abscess without sinus (principal); E11.9 Type 2 diabetes mellitus without complications; I10 Essential (primary) hypertension; Z95.1 Presence of aortocoronary bypass graft; Z95.5 Presence of coronary angioplasty implant and graft; Z79.84 Long term (current) use of oral hypoglycemic drugs

== ENCOUNTER 2022-07-29 06:23 | Day surgery (SDC) | payer OTHER ==
[~2022-07-29] VITALS: Ht 162.6 cm; Wt 81.2 kg
[2022-07-29 08:08] VITALS: BP 133/78
== END 2022-07-29 08:42 | disposition home or self-care (01) ==
LOC: ENDO 06:23
PROVIDERS: ATTEND Internal Medicine Gastroenterology
DX: K59.09 Other constipation (principal); K57.30 Diverticulosis of large intestine without perforation or abscess without bleeding; K21.9 Gastro-esophageal reflux disease without esophagitis; Z79.899 Other long term (current) drug therapy

== ENCOUNTER 2022-08-24 13:25 | Emergency (ER) | payer OTHER ==
[2022-08-24] VITALS (9 sets, daily range): BP systolic 140–206; BP diastolic 76–157
[~2022-08-24] VITALS: Ht 162.6 cm; Wt 81.1 kg
[2022-08-24] MEDS ORDERED: CLEOCIN300 MG PO (15:49)
[2022-08-24] MEDS ORDERED: DICYCLOMINE10 MG PO (15:50)
[2022-08-24] MEDS ORDERED: ZPAK PO (16:53)
== END 2022-08-24 17:09 | disposition home or self-care (01) ==
LOC: ED 13:25
DX: J02.9 Acute pharyngitis, unspecified (principal); I10 Essential (primary) hypertension; E11.9 Type 2 diabetes mellitus without complications; Z95.1 Presence of aortocoronary bypass graft; Z95.5 Presence of coronary angioplasty implant and graft; Z79.84 Long term (current) use of oral hypoglycemic drugs; Z20.822 Contact with and (suspected) exposure to COVID-19

== ENCOUNTER 2022-10-04 10:36 | Emergency (ER) | payer OTHER ==
[~2022-10-04] VITALS: Ht 162.6 cm; Wt 82.0 kg
[~2022-10-04 10:36] MED LIST changes: +CLEOCIN300 MG PO; +ZPAK PO
[2022-10-04 10:50] VITALS: BP 177/90
[2022-10-04] MEDS ORDERED: DICLOFENAC SODIUM2 % TD (11:44)
[2022-10-04 12:11] VITALS: BP 177/90
== END 2022-10-04 12:11 | disposition home or self-care (01) ==
LOC: ED 10:36
DX: S90.31XA Contusion of right foot, initial encounter (principal); E11.9 Type 2 diabetes mellitus without complications; I10 Essential (primary) hypertension; I25.10 Atherosclerotic heart disease of native coronary artery without angina pectoris; Z79.84 Long term (current) use of oral hypoglycemic drugs; Y92.009 Unspecified place in unspecified non-institutional (private) residence as the place of occurrence of the external cause; Z95.1 Presence of aortocoronary bypass graft; Z95.5 Presence of coronary angioplasty implant and graft; W20.8XXA Other cause of strike by thrown, projected or falling object, initial encounter; E11.65 Type 2 diabetes mellitus with hyperglycemia; I25.728 Atherosclerosis of autologous artery coronary artery bypass graft(s) with other forms of angina pectoris; N18.31 Chronic kidney disease, stage 3a

== ENCOUNTER 2023-02-08 00:17 | Emergency (ER) | payer MEDICARE, MEDICAID ==
[2023-02-08] VITALS (7 sets, daily range): BP systolic 153–188; BP diastolic 82–92
[~2023-02-08] VITALS: Ht 162.6 cm; Wt 81.2 kg
[~2023-02-08 00:17] MED LIST changes: +DICLOFENAC SODIUM2 % TD
[2023-02-08 01:09] LABS: BASO% 0.5 % (0-3); HEMATOCRIT 35.7 % (37.0-47.0); HEMOGLOBIN 11.4 g/dl (12.0-16.0); IMMATURE GRANULOCYTES 0.6 % (0.0-5.0); LYMPH% 29.8 % (15-41); MEAN CELL VOLUME 87.7 fL CALC (80.0-100.0); MEAN CORPUSCULAR HGB CONC 31.9 g/dL CAL (32.0-36.0); MONO% 9.9 % (2-13); NEUT# 3.53 thou/uL (2.00-7.15); NEUT% 56.2 % (42-76); RED BLOOD COUNT 4.07 mill/uL (4.20-5.60); RED CELL DISTRI WIDTH 13.8 % (11.5-15.5)
[2023-02-08 01:13] LABS: URINE BILIRUBIN - DIPSTICK Negative (NEGATIVE); URINE BLOOD DIPSTICK Trace-intact (NEGATIVE); URINE GLUCOSE - DIPSTICK Negative (NEGATIVE); URINE KETONE Negative (NEGATIVE); URINE LEUK ESTERASE Negative (NEGATIVE); URINE NITRITE - DIPSTICK Negative (Negative); URINE PROTEIN - DIPSTICK >=300 mg/dL (NEG-TRACE); URINE UROBILINOGEN - DIPSTICK 0.2 E.U./dL (0.2)
[2023-02-08 01:14] LABS: URINE COLOR Yellow
[2023-02-08 01:23] LABS: URINE BACTERIA FEW hpf; URINE RBC 0-2 RBC/hpf (0-5); URINE SQUAMOUS EPITHELIAL CELL FEW EPI/hpf (0-FEW)
[2023-02-08 01:24] LABS: ALBUMIN 4.5 g/dL (3.2-5.0); BILIRUBIN, TOTAL 0.5 mg/dL (0.02-1.3); CREATININE 1.4 mg/dL (0.5-1.0); POTASSIUM 3.7 mmol/l (3.5-5.1); TOTAL PROTEIN 7.8 g/dL (6.3-8.2)
== END 2023-02-08 04:19 | disposition home or self-care (01) ==
LOC: ED 00:17
PROVIDERS: Family Medicine
DX: I11.0 Hypertensive heart disease with heart failure (principal); I50.9 Heart failure, unspecified; E11.9 Type 2 diabetes mellitus without complications; Z95.1 Presence of aortocoronary bypass graft; Z95.5 Presence of coronary angioplasty implant and graft; Z79.84 Long term (current) use of oral hypoglycemic drugs

== ENCOUNTER 2023-09-22 09:16 | Day surgery (SDC) | payer MEDICARE, MEDICAID ==
[~2023-09-22] VITALS: Ht 162.6 cm; Wt 79.4 kg
[~2023-09-22 09:16] MED LIST changes: +HYDROCHLOROQUINE PO; +ISORDIL10 MG PO; +LINZESS72 MCG PO; +LORTAB 1010 MG PO; +OS-CAL 500500 M1 PO; +PROVENTIL HFA108 MCG IN
[2023-09-22] MEDS ORDERED: FAMOTIDINE 10MG/ML 2ML SDV IV ONE (09:58)
[2023-09-22] MEDS ORDERED: SODIUM CHLORIDE 0.9% 1,000 ML IV ONE (09:58)
[2023-09-22 12:14] VITALS: BP 152/77
[2023-09-22] MEDS ORDERED: LIDOCAINE HCL 2% 2ML SDV IV ONE (14:11)
[2023-09-22] MEDS ORDERED: PROPOFOL 200 MG/20 ML VIAL IV ONE (14:11)
[2023-09-22] MEDS ORDERED: GLYCOPYRROLATE 0.2 MG/ML IV ONE (14:11)
== END 2023-09-22 12:26 | disposition home or self-care (01) ==
LOC: ORM 09:16
PROVIDERS: ATTEND Internal Medicine Gastroenterology
PROC: 0DB48ZX Excision of Esophagogastric Junction, Via Natural or Artificial Opening Endoscopic, Diagnostic (ICD-10-PCS; principal; 2023-09-22)
PROC: 0DB78ZX Excision of Stomach, Pylorus, Via Natural or Artificial Opening Endoscopic, Diagnostic (ICD-10-PCS; 2023-09-22)
DX: K29.70 Gastritis, unspecified, without bleeding (principal); K31.89 Other diseases of stomach and duodenum; I10 Essential (primary) hypertension; E11.40 Type 2 diabetes mellitus with diabetic neuropathy, unspecified; J44.9 Chronic obstructive pulmonary disease, unspecified; I25.10 Atherosclerotic heart disease of native coronary artery without angina pectoris; E78.5 Hyperlipidemia, unspecified; G47.30 Sleep apnea, unspecified; I35.1 Nonrheumatic aortic (valve) insufficiency; Z95.1 Presence of aortocoronary bypass graft; Z95.5 Presence of coronary angioplasty implant and graft; Z79.84 Long term (current) use of oral hypoglycemic drugs; Z86.19 Personal history of other infectious and parasitic diseases; Z86.73 Personal history of transient ischemic attack (TIA), and cerebral infarction without residual deficits

== ENCOUNTER 2024-01-18 14:29 | Emergency (ER) | payer MEDICARE, MEDICAID ==
[2024-01-18] VITALS (11 sets, daily range): BP systolic 169–196; BP diastolic 89–104
[~2024-01-18] VITALS: Ht 162.6 cm; Wt 68.0 kg
[2024-01-18] MEDS ORDERED: CARVEDILOL 25 MG/TAB PO ONE (14:50)
[2024-01-18] MEDS ORDERED: amLODIPine BESYLATE 5 MG/TAB PO ONE (14:50)
[2024-01-18] MEDS ORDERED: LISINOPRIL 20 MG/TAB PO ONE (14:50)
[2024-01-18 15:10] LABS: BASO% 0.3 % (0-3); EOS% 2.2 % (0-8); HEMATOCRIT 38.4 % (37.0-47.0); HEMOGLOBIN 12.2 g/dl (12.0-16.0); IMMATURE GRANULOCYTES 0.3 % (0.0-5.0); LYMPH% 7.2 % (15-41); MEAN CELL VOLUME 89.7 fL CALC (80.0-100.0); MEAN CORPUSCULAR HGB 28.5 pG CALC (26.0-32.0); MEAN CORPUSCULAR HGB CONC 31.8 g/dL CAL (32.0-36.0); MONO% 7.7 % (2-13); NEUT# 12.14 thou/uL (2.00-7.15); NEUT% 82.3 % (42-76); RED BLOOD COUNT 4.28 mill/uL (4.20-5.60); RED CELL DISTRI WIDTH 13.9 % (11.5-15.5)
[2024-01-18 15:19] LABS: ALBUMIN 4.8 g/dL (3.2-5.0); BILIRUBIN, TOTAL 0.8 mg/dL (0.02-1.3); CREATININE 1.2 mg/dL (0.5-1.0); POTASSIUM 4.1 mmol/l (3.5-5.1); TOTAL PROTEIN 8.4 g/dL (6.3-8.2)
[2024-01-18 16:44] LABS: URINE BILIRUBIN - DIPSTICK Negative (NEGATIVE); URINE BLOOD DIPSTICK Trace-intact (NEGATIVE); URINE GLUCOSE - DIPSTICK Negative (NEGATIVE); URINE KETONE Negative (NEGATIVE); URINE LEUK ESTERASE Negative (NEGATIVE); URINE NITRITE - DIPSTICK Negative (Negative); URINE PH 7.5 (4.5-8.0); URINE PROTEIN - DIPSTICK >=300 mg/dL (NEG-TRACE); URINE UROBILINOGEN - DIPSTICK 0.2 E.U./dL (0.2)
[2024-01-18 16:51] LABS: URINE COLOR Yellow
[2024-01-18 16:53] LABS: URINE WBC 0-2 WBC/hpf (0-5)
[2024-01-18 16:54] LABS: URINE MUCUS FEW hpf (NONE-FEW); URINE SQUAMOUS EPITHELIAL CELL FEW EPI/hpf (0-FEW)
== END 2024-01-18 17:10 | disposition left against medical advice (07) ==
LOC: ED 14:29
PROVIDERS: Family Medicine
DX: R05.9 Cough, unspecified (principal); E11.9 Type 2 diabetes mellitus without complications; I10 Essential (primary) hypertension; Z95.1 Presence of aortocoronary bypass graft; Z95.5 Presence of coronary angioplasty implant and graft; Z79.84 Long term (current) use of oral hypoglycemic drugs; Z20.822 Contact with and (suspected) exposure to COVID-19